=== PATIENT | female | born 1975 | race Caucasian/White ===

== ENCOUNTER 2017-10-31 11:56 | Emergency (ER) | payer SELFPAY ==
[2017-10-31 13:47] LABS: Urine Blood TRACE (NEG); Urine Glucose NEGATIVE (NEG); Urine Protein NEGATIVE (NEG)
[2017-10-31 14:58] LABS: Urine Bacteria LOADED /HPF (<20); Urine Culture Reflex Order REFLEXED; Urine RBC <5 /HPF (NONE SEEN)
--- NOTE | 2017-10-31 15:02 | ER ---
Nurse's Notes [facility] Name: Betsy Vo Age: 42 yrs Sex: Female : 1975 Arrival Date: 10/31/2017 Time: 11:58 Bed 30 Private MD: Diagnosis: Acute upper respiratory infection, unspecified;Urinary tract infection, site not specified Presentation: 10/31 12:08 Presenting complaint: Patient states: Sore throat, painful cough, nonproductive cough, hb and sinus congestion x 4 days. Vomit x 1. Tolerating liquids. Child dx bronchitis last week. Transition of care: patient was not received from another setting of care. Resp Distress? No respiratory distress is noted at this time. Onset of symptoms was October 28, 2017. Initial Sepsis Screen: Does the patient meet any 2 criteria? No. Patient's initial sepsis screen is negative. Does the patient have a suspected source of infection? No. Patient's initial sepsis screen is negative. Care prior to arrival: None. 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 - Social history:: Smoking status: Patient/guardian denies using tobacco. Screenin:00 Abuse screen: Denies threats or abuse. Nutritional screening: No deficits noted. tl3 Tuberculosis screening: No symptoms or risk factors identified. Fall Risk None identified. Assessment: 13:00 General: Appears uncomfortable, obese, well groomed, well developed, well nourished, tl3 Behavior is calm, cooperative, appropriate for age. Pain: Complains of pain in xyphoid area and mid-sternal area. Neuro: Level of Consciousness is awake, alert, obeys commands, Oriented to person, place, time, situation, Appropriate for age. Cardiovascular: Heart tones S1 S2 present Capillary refill < 3 seconds in bilateral fingers Patient's skin is warm and dry. Respiratory: Airway is patent Trachea midline Breath sounds are clear. GI: Reports vomiting, since X1 last night. : No signs and/or symptoms were reported regarding the genitourinary system. EENT: Reports nasal congestion nasal discharge. Derm: No signs and/or symptoms reported regarding the dermatologic system. Musculoskeletal: No signs and/or symptoms reported regarding the musculoskeletal system. 14:00 Reassessment: Patient appears in no apparent distress at this time. No changes from tl3 previously documented assessment. Patient and/or family updated on plan of care and expected duration. Pain level reassessed. Patient is alert, oriented x 3, equal unlabored respirations, skin warm/dry/pink. pt changed into gown for x-ray and blankets offered for comfort and privacy. 15:14 Reassessment: Patient appears in no apparent distress at this time. No changes from hb previously documented assessment. Patient and/or family updated on plan of care and expected duration. Pain level reassessed. Patient is alert, oriented x 3, equal unlabored respirations, skin warm/dry/pink. Vital Signs: 12:11 BP 147 / 103; Pulse 80; Resp 16; Temp 98.2(TE); Pulse Ox 100% on R/A; Weight 136.08 kg; hb Height 5 ft. 7 in. (170.18 cm); Pain 4/10; 15:14 BP 133 / 75; Pulse 79; Resp 18; Pulse Ox 100% ; hb 12:11 Body Mass Index 46.99 (136.08 kg, 170.18 cm) hb ED Course: 11:58 Patient arrived in ED. as 12:10 Triage completed. hb 12:11 Arm band placed on right wrist. hb 12:55 Connie Cruz, RN is Primary Nurse. tl3 13:00 Resting quietly. Awaiting ED provider evaluation. tl3 13:00 Patient has correct armband on for positive identification. Bed in low position. Call tl3 light in reach. Side rails up X 1. 13:00 No provider procedures requiring assistance completed. tl3 13:01 Heber Mendoza PA is PHCP. jr8 13:01 Rashaun Conn MD is Attending Physician. jr8 14:00 Patient did not have IV access during this emergency room visit. tl3 14:30 XRAY Chest Pa And Lat (2 Views) In Process Unspecified. EDMS Administered Medications: No medications were administered Outcome: 15:02 Discharge ordered by . jr8 15:14 Discharged to home ambulatory. hb 15:14 Condition: good 15:14 Discharge instructions given to patient, Instructed on discharge instructions, follow up and referral plans. medication usage, Demonstrated understanding of instructions, follow-up care, medications, Prescriptions given X 3. 15:16 Patient left the ED. hb Addendum: 11/03/2017 14:32 Addendum: Culture Results: Positive urine culture. No further action required. Bacteria i w sensitive to prescribed antibiotic. Signatures: Dispatcher [employer] Heather Deutsch Irene, RN RN Heber Mendoza PA PA jr8 Adri Simeon RN RN Connie Cruz RN RN tl3 Corrections: (The following items were deleted from the chart) 10/31 12:13 12:08 Presenting complaint: Patient states: Painful cough, chest congestion, sinus hb congestion, and SOB x 4 days. Child dx bronchitis last week. hb
--- NOTE | 2017-10-31 15:02 | EDPHYS ---
Physician Documentation [facility] Name: Betsy Vo Age: 42 yrs Sex: Female : 1975 Arrival Date: 10/31/2017 Time: 11:58 Bed 30 Private MD: ED Physician Rashaun Conn HPI: 10/31 15:05 This 42 yrs old Female presents to ER via Ambulatory with complaints of jr8 Congestion, Vomiting, Weakness. 15:05 The patient or guardian reports cough, that is intermittent, described as moderate, jr8 with no sputum. Onset: The symptoms/episode began/occurred gradually, 1 week(s) ago. Severity of symptoms: At their worst the symptoms were mild, in the emergency department the symptoms are unchanged. Modifying factors: The symptoms are alleviated by nothing, the symptoms are aggravated by nothing. Associated signs and symptoms: Pertinent positives: vomiting. The patient has not experienced similar symptoms in the past. The patient has not recently seen a physician. 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 - Social history:: Smoking status: Patient/guardian denies using tobacco. ROS: 15:05 Eyes: Negative for injury, pain, redness, and discharge, ENT: Negative for injury, jr8 pain, and discharge, Neck: Negative for injury, pain, and swelling, Back: Negative for injury and pain, MS/Extremity: Negative for injury and deformity, Skin: Negative for injury, rash, and discoloration, Neuro: Negative for headache, weakness, numbness, tingling, and seizure. 15:05 Cardiovascular: Positive for chest pain, with cough, Negative for edema, orthopnea, palpitations, paroxysmal nocturnal dyspnea. 15:05 Respiratory: Positive for cough, Negative for dyspnea on exertion, shortness of breath, sputum production, wheezing. 15:05 Abdomen/GI: Positive for nausea and vomiting, Negative for abdominal pain, diarrhea, constipation, abdominal cramps, abdominal distension. Exam: 15:05 Eyes: Pupils equal round and reactive to light, extra-ocular motions intact. Lids and jr8 lashes normal. Conjunctiva and sclera are non-icteric and not injected. Cornea within normal limits. Periorbital areas with no swelling, redness, or edema. ENT: Nares patent. No nasal discharge, no septal abnormalities noted. Tympanic membranes are normal and external auditory canals are clear. Oropharynx with no redness, swelling, or masses, exudates, or evidence of obstruction, uvula midline. Mucous membranes moist. Neck: Trachea midline, no thyromegaly or masses palpated, and no cervical lymphadenopathy. Supple, full range of motion without nuchal rigidity, or vertebral point tenderness. No Meningismus. Cardiovascular: Regular rate and rhythm with a normal S1 and S2. No gallops, murmurs, or rubs. Normal PMI, no JVD. No pulse deficits. Respiratory: Lungs have equal breath sounds bilaterally, clear to auscultation and percussion. No rales, rhonchi or wheezes noted. No increased work of breathing, no retractions or nasal flaring. Abdomen/GI: Soft, non-tender, with normal bowel sounds. No distension or tympany. No guarding or rebound. No evidence of tenderness throughout. Back: No spinal tenderness. No costovertebral tenderness. Full range of motion. Skin: Warm, dry with normal turgor. Normal color with no rashes, no lesions, and no evidence of cellulitis. MS/ Extremity: Pulses equal, no cyanosis. Neurovascular intact. Full, normal range of motion. Neuro: Awake and alert, GCS 15, oriented to person, place, time, and situation. Cranial nerves II-XII grossly intact. Motor strength 5/5 in all extremities. Sensory grossly intact. Cerebellar exam normal. Normal gait. Vital Signs: 12:11 BP 147 / 103; Pulse 80; Resp 16; Temp 98.2(TE); Pulse Ox 100% on R/A; Weight 136.08 kg; hb Height 5 ft. 7 in. (170.18 cm); Pain 4/10; 15:14 BP 133 / 75; Pulse 79; Resp 18; Pulse Ox 100% ; hb 12:11 Body Mass Index 46.99 (136.08 kg, 170.18 cm) hb MDM: 13:01 Patient medically screened. jr8 14:58 Data reviewed: vital signs, nurses notes, radiologic studies, plain films, and as a jr8 result, I will discharge patient. Data interpreted: Pulse oximetry: on room air is 100 %. Interpretation: normal. Counseling: I had a detailed discussion with the patient and/or guardian regarding: the historical points, exam findings, and any diagnostic results supporting the discharge/admit diagnosis, radiology results, the need for outpatient follow up, a family practitioner, to return to the emergency department if symptoms worsen or persist or if there are any questions or concerns that arise at home. 10/31 13:38 Order name: Urine Dipstick--Ancillary (enter results); Complete Time: 13:57 bd 10/31 13:38 Order name: Urine --Ancillary (enter results); Complete Time: 13:57 bd 10/31 13:28 Order name: XRAY Chest Pa And Lat (2 Views); Complete Time: 15:05 8 10/31 13:57 Order name: Urine Microscopic Only; Complete Time: 15:03 [facility] 10/31 14:59 Order name: Urine Culture EDMS Administered Medications: No medications were administered Disposition: 10/31/17 15:02 Discharged to Home. Impression: Acute upper respiratory infection, unspecified, Urinary tract infection, site not specified. - Condition is Stable. - Discharge Instructions: Upper Respiratory Infection, Adult, Urinary Tract Infection. - Prescriptions for Augmentin 875- 125 mg Oral Tablet - take 1 tablet by ORAL route every 12 hours for 10 days; 20 tablet. Prednisone 20 mg Oral Tablet - take 1 tablet by ORAL route once daily for 5 days; 5 tablet. Guaifenesin AC 10- 100 mg/5 mL Oral Liquid - take 10 milliliter by ORAL route every 4 hours As needed; 240 milliliter. - Medication Reconciliation Form, Thank You Letter, Antibiotic Education, Prescription Opioid Use form. - Follow up: Private Physician; When: 2 - 3 days; Reason: Recheck today's complaints, Continuance of care, Re-evaluation by your physician. - Problem is new. - Symptoms have improved. Addendum: 11/04/2017 19:09 Co-signature as Attending Physician, Rashaun Conn MD. g s Signatures: Dispatcher [employer] EDMS Heber Mendoza PA PA jr8 Adri Simeon, RN RN Rashaun Swanson MD MD gs Corrections: (The following items were deleted from the chart) 10/31 15:16 15:02 10/31/2017 15:02 Discharged to Home. Impression: Acute upper respiratory hb infection, unspecified; Urinary tract infection, site not specified. Condition is Stable. Forms are Medication Reconciliation Form, Thank You Letter, Antibiotic Education, Prescription Opioid Use. Follow up: Private Physician; When: 2 - 3 days; Reason: Recheck today's complaints, Continuance of care, Re-evaluation by your physician. Problem is new. Symptoms have improved. jr8
--- NOTE | 2017-10-31 15:03 | RAD REPORT ---
EXAM DESCRIPTION: Waqar Michelle (2 Views)10/31/2017 2:31 pm CLINICAL HISTORY: Cough COMPARISON: None FINDINGS: The lungs appear clear of acute infiltrate. The heart is normal size IMPRESSION: No acute abnormalities displayed
[2017-10-31 15:20] VITALS: TEMP 98.2; O2SAT 100
[2017-10-31 15:21] VITALS: BP 133/75
== END 2017-10-31 15:16 | disposition home or self-care (01) ==
LOC: ER 11:56
DX: J06.9 Acute upper respiratory infection, unspecified (principal); N39.0 Urinary tract infection, site not specified; Z88.2 Allergy status to sulfonamides; Z88.8 Allergy status to other drugs, medicaments and biological substances
CPT/HCPCS: 71046; 81003; 81015; 81025; 87077; 87086; 87088; 87186; 99283

== ENCOUNTER 2018-06-01 13:01 | Emergency (ER) | payer SELFPAY ==
[2018-06-01 13:47] LABS: Urine Blood 2+ (NEG); Urine Glucose NEGATIVE (NEG); Urine Protein 2+ (NEG); Urine Specific Gravity 1.025 (1.005-1.030)
[2018-06-01 13:49] LABS: Urine Bacteria >50 /HPF (<20); Urine Culture Reflex Order NOT NEEDED; Urine RBC 20-50 /HPF (NONE SEEN)
[2018-06-01 13:50] LABS: Urine Yeast PRESENT (NONE SEEN)
--- NOTE | 2018-06-01 13:52 | ER ---
Nurse's Notes [facility] Name: Betsy Vo Age: 42 yrs Sex: Female : 1975 Arrival Date: 06/01/2018 Time: 13:06 Bed 24 Private MD: None, None Diagnosis: Cystitis Presentation: 06/01 13:15 Presenting complaint: Patient states: Urinary frequency and burning for 2 days. aj Transition of care: patient was not received from another setting of care. Onset of symptoms was May 30, 2018. Risk Assessment: Do you want to hurt yourself or someone else? Patient reports no desire to harm self or others. Initial Sepsis Screen: Does the patient meet any 2 criteria? No. Patient's initial sepsis screen is negative. Does the patient have a suspected source of infection? No. Patient's initial sepsis screen is negative. Care prior to arrival: None. 13:15 Method Of Arrival: Ambulatory aj 13:15 Acuity: BLAIRE 4 aj Triage Assessment: 13:17 General: Appears in no apparent distress. comfortable, Behavior is calm, cooperative, aj appropriate for age. Pain: Denies pain. Neuro: Level of Consciousness is awake, alert, obeys commands, Oriented to person, place, time, situation, Appropriate for age. Respiratory: Airway is patent Respiratory effort is even, unlabored, Respiratory pattern is regular, symmetrical. : Reports burning with urination. Derm: Skin is intact, is healthy with good turgor, Skin is pink, warm \T\ dry. normal. 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 - Social history:: Smoking status: Patient/guardian denies using tobacco. - Ebola Screening: : Patient negative for fever greater than or equal to 101.5 degrees Fahrenheit, and additional compatible Ebola Virus Disease symptoms Patient denies exposure to infectious person Patient denies travel to an Ebola-affected area in the 21 days before illness onset No symptoms or risks identified at this time. Screenin:26 Abuse screen: Denies threats or abuse. Denies injuries from another. Nutritional ed1 screening: No deficits noted. Tuberculosis screening: No symptoms or risk factors identified. Fall Risk None identified. Assessment: 13:26 Reassessment: Patient appears in no apparent distress at this time. No changes from ed1 previously documented assessment. Patient and/or family updated on plan of care and expected duration. Pain level reassessed. Patient is alert, oriented x 3, equal unlabored respirations, skin warm/dry/pink. Patient states symptoms have not improved. 13:50 Reassessment: Patient appears in no apparent distress at this time. I agree with above iw assessment by ROBERT Melendez. 14:09 Reassessment: Patient appears in no apparent distress at this time. No changes from ed1 previously documented assessment. Patient and/or family updated on plan of care and expected duration. Pain level reassessed. Patient is alert, oriented x 3, equal unlabored respirations, skin warm/dry/pink. Vital Signs: 13:17 BP 134 / 84; Pulse 89; Resp 19; Temp 98.4; Pulse Ox 100% on R/A; Weight 131.54 kg; aj Height 5 ft. 7 in. (170.18 cm); 14:09 BP 132 / 76; Pulse 83; Resp 17; Pulse Ox 100% on R/A; Pain 0/10; ed1 13:17 Body Mass Index 45.42 (131.54 kg, 170.18 cm) ED Course: 13:06 Patient arrived in ED. mr 13:07 None, None is Private Physician. mr 13:16 Triage completed. aj 13:17 Arm band placed on right wrist. Patient placed in an exam room. aj 13:21 Heber Mendoza PA is PHCP. jr8 13:21 Vignesh Camacho MD is Attending Physician. jr8 13:26 Nora Olivera LVN is Primary Nurse. ed1 13:26 Patient has correct armband on for positive identification. Bed in low position. Call ed1 light in reach. 14:09 No provider procedures requiring assistance completed. Patient did not have IV access ed1 during this emergency room visit. Administered Medications: No medications were administered Outcome: 13:52 Discharge ordered by . jr8 14:09 Discharged to home ambulatory. ed1 14:09 Condition: good 14:09 Discharge instructions given to patient, Instructed on discharge instructions, follow up and referral plans. medication usage, Demonstrated understanding of instructions, follow-up care, medications, Prescriptions given X 2. 14:10 Patient left the ED. ed1 15:22 Discharge instructions given to prescription changed to Leavquin 500 mg PO daily for 5 iw days, per Heber MUNOZ, pharmacy states they cannot get Macrobid Signatures: Mela Carolina RN RN aj Rivera, Mary mr Williams, Irene, RN RN iw Riggs, Erika, CASH VAN SALESPERSON CASH VAN SALESPERSON ed1 Heber Mendoza PA PA jr8
--- NOTE | 2018-06-01 13:52 | EDPHYS ---
Physician Documentation [facility] Name: Betsy Vo Age: 42 yrs Sex: Female : 1975 Arrival Date: 06/01/2018 Time: 13:06 Bed 24 Private MD: None, None ED Physician Vignesh Camacho HPI: 06/01 13:50 This 42 yrs old Female presents to ER via Ambulatory with complaints of jr8 Urinary Problem. 13:50 The patient presents with urinary symptoms, dysuria, frequency, urgency. Onset: The jr8 symptoms/episode began/occurred acutely, yesterday. Modifying factors: The symptoms are alleviated by nothing, the symptoms are aggravated by urinating. Associated signs and symptoms: The patient has no apparent associated signs or symptoms. Severity of symptoms: At their worst the symptoms were mild, in the emergency department the symptoms are unchanged. The patient has experienced similar episodes in the past, a few times. The patient has not recently seen a physician. 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 - Social history:: Smoking status: Patient/guardian denies using tobacco. - Ebola Screening: : Patient negative for fever greater than or equal to 101.5 degrees Fahrenheit, and additional compatible Ebola Virus Disease symptoms Patient denies exposure to infectious person Patient denies travel to an Ebola-affected area in the 21 days before illness onset No symptoms or risks identified at this time. ROS: 13:50 Eyes: Negative for injury, pain, redness, and discharge, ENT: Negative for injury, jr8 pain, and discharge, Neck: Negative for injury, pain, and swelling, Cardiovascular: Negative for chest pain, palpitations, and edema, Respiratory: Negative for shortness of breath, cough, wheezing, and pleuritic chest pain, Abdomen/GI: Negative for abdominal pain, nausea, vomiting, diarrhea, and constipation, Back: Negative for injury and pain, MS/Extremity: Negative for injury and deformity, Skin: Negative for injury, rash, and discoloration, Neuro: Negative for headache, weakness, numbness, tingling, and seizure. 13:50 : Positive for urinary symptoms, burning with urination. Exam: 13:50 Cardiovascular: Regular rate and rhythm with a normal S1 and S2. No gallops, murmurs, jr8 or rubs. Normal PMI, no JVD. No pulse deficits. Respiratory: Lungs have equal breath sounds bilaterally, clear to auscultation and percussion. No rales, rhonchi or wheezes noted. No increased work of breathing, no retractions or nasal flaring. Abdomen/GI: Soft, non-tender, with normal bowel sounds. No distension or tympany. No guarding or rebound. No evidence of tenderness throughout. Back: No spinal tenderness. No costovertebral tenderness. Full range of motion. Skin: Warm, dry with normal turgor. Normal color with no rashes, no lesions, and no evidence of cellulitis. MS/ Extremity: Pulses equal, no cyanosis. Neurovascular intact. Full, normal range of motion. Neuro: Awake and alert, GCS 15, oriented to person, place, time, and situation. Cranial nerves II-XII grossly intact. Motor strength 5/5 in all extremities. Sensory grossly intact. Cerebellar exam normal. Normal gait. Vital Signs: 13:17 BP 134 / 84; Pulse 89; Resp 19; Temp 98.4; Pulse Ox 100% on R/A; Weight 131.54 kg; aj Height 5 ft. 7 in. (170.18 cm); 14:09 BP 132 / 76; Pulse 83; Resp 17; Pulse Ox 100% on R/A; Pain 0/10; ed1 13:17 Body Mass Index 45.42 (131.54 kg, 170.18 cm) aj MDM: 13:21 Patient medically screened. [facility] 13:50 Data reviewed: vital signs, nurses notes, lab test result(s), and as a result, I will [facility] discharge patient. Data interpreted: Pulse oximetry: on room air is 100 %. Interpretation: normal. Counseling: I had a detailed discussion with the patient and/or guardian regarding: the historical points, exam findings, and any diagnostic results supporting the discharge/admit diagnosis, lab results, the need for outpatient follow up, a family practitioner, to return to the emergency department if symptoms worsen or persist or if there are any questions or concerns that arise at home. 06/01 13:30 Order name: Urine Microscopic Only [facility] 06/01 13:43 Order name: Urine Dipstick--Ancillary (enter results); Complete Time: 13:50 eb 06/01 13:30 Order name: Urine Test (obtain specimen); Complete Time: 13:41 8 06/01 13:30 Order name: Urine Dipstick-Ancillary (obtain specimen); Complete Time: 13:41 [facility] 06/01 13:43 Order name: Urine --Ancillary (enter results); Complete Time: 13:50 eb Administered Medications: No medications were administered Disposition: 18:52 Co-signature as Attending Physician, Vignesh Camacho MD I agree with the assessment and kdr plan of care. Disposition: 06/01/18 13:52 Discharged to Home. Impression: Cystitis. - Condition is Stable. - Discharge Instructions: Dysuria. - Prescriptions for Pyridium 200 mg Oral Tablet - take 1 tablet by ORAL route every 8 hours for 3 days; 9 tablet. Macrobid 100 mg Oral Capsule - take 1 capsule by ORAL route every 12 hours for 7 days; 14 capsule. - Medication Reconciliation Form, Thank You Letter, Antibiotic Education, Prescription Opioid Use form. - Follow up: Private Physician; When: 1 week; Reason: Recheck today's complaints, Continuance of care, Re-evaluation by your physician. - Problem is new. - Symptoms have improved. Signatures: Dispatcher [employer] EDMS Mela Carolina RN RN aj Rittger, Kevin, MD MD [facility] Nora Olivera, BOILING OFF WINDER BOILING OFF WINDER ed1 Heber Mendoza PA PA jr8 Corrections: (The following items were deleted from the chart) 14:10 13:52 06/01/2018 13:52 Discharged to Home. Impression: Cystitis. Condition is Stable. ed1 Forms are Medication Reconciliation Form, Thank You Letter, Antibiotic Education, Prescription Opioid Use. Follow up: Private Physician; When: 1 week; Reason: Recheck today's complaints, Continuance of care, Re-evaluation by your physician. Problem is new. Symptoms have improved. jr8
[2018-06-01 14:27] VITALS: TEMP 98.4; O2SAT 100
[2018-06-01 14:28] VITALS: BP 132/76
== END 2018-06-01 14:10 | disposition home or self-care (01) ==
LOC: ER 13:01
DX: N30.90 Cystitis, unspecified without hematuria (principal); I10 Essential (primary) hypertension; Z88.2 Allergy status to sulfonamides; Z88.8 Allergy status to other drugs, medicaments and biological substances
CPT/HCPCS: 81003; 81015; 81025; 99282

== ENCOUNTER 2018-12-02 11:06 | Emergency (ER) | payer OTHER, SELFPAY ==
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
[2018-12-02 12:43] VITALS: BP 141/96; TEMP 98; O2SAT 100
== END 2018-12-02 12:28 | disposition home or self-care (01) ==
LOC: ER 11:06
DX: S87.82XA Crushing injury of left lower leg, initial encounter (principal); W20.8XXA Other cause of strike by thrown, projected or falling object, initial encounter; E78.5 Hyperlipidemia, unspecified; I10 Essential (primary) hypertension
CPT/HCPCS: 99283

== ENCOUNTER 2019-03-03 06:45 | Emergency (ER) | payer SELFPAY ==
[2019-03-03 07:51] LABS: Urine Bacteria LOADED /HPF (<20); Urine RBC NONE SEEN /HPF (NONE SEEN)
[2019-03-03 07:52] LABS: Urine Culture Reflex Order NOT NEEDED
[2019-03-03 07:53] LABS: Urine Blood TRACE (NEG); Urine Glucose NEGATIVE (NEG); Urine Protein NEGATIVE (NEG)
[2019-03-03] MEDS ORDERED: CEFTRIAXONE 1000 MG/VIAL ONE (08:06)
[2019-03-03] MEDS ORDERED: LIDOCAINE 1% MPF 2 ML AMPULE ONE (08:06)
--- NOTE | 2019-03-03 08:07 | ER ---
Nurse's Notes [facility] Name: Betsy Vo Age: 43 yrs Sex: Female : 1975 Arrival Date: 03/03/2019 Time: 06:46 Bed 2 Private MD: Diagnosis: Bronchitis, not specified as acute or chronic;Urinary tract infection, site not specified;Essential (primary) hypertension Presentation: 03/03 06:58 Presenting complaint: Patient states: "I started on Tuesday with a sore throat but then aa5 it got better so I didn't think anything of it and now I am sneezing and coughing up yellow stuff at times". Pt also reports urinary frequency and reports she's been out of her hypertension medication for 2 weeks. 06:58 Transition of care: patient was not received from another setting of care. aa5 06:58 Method Of Arrival: Ambulatory aa5 06:58 Acuity: BLAIRE 3 aa5 06:58 Onset of symptoms was February 2019. aa5 06:58 Risk Assessment: Do you want to hurt yourself or someone else? Patient reports no aa5 desire to harm self or others. Initial Sepsis Screen: Does the patient meet any 2 criteria? No. Patient's initial sepsis screen is negative. Does the patient have a suspected source of infection? No. Patient's initial sepsis screen is negative. Care prior to arrival: None. 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 - Social history:: Smoking status: Patient/guardian denies using tobacco. - Ebola Screening: : No symptoms or risks identified at this time. Screenin:15 Abuse screen: Denies threats or abuse. Denies injuries from another. Nutritional hb screening: No deficits noted. Tuberculosis screening: No symptoms or risk factors identified. Fall Risk None identified. Assessment: 07:15 General: Appears in no apparent distress. Behavior is calm, cooperative. Pain: Denies hb pain. Neuro: Level of Consciousness is awake, alert, obeys commands, Oriented to person, place, time, situation. Cardiovascular: Heart tones S1 S2 present Capillary refill < 3 seconds Patient's skin is warm and dry. Respiratory: Reports cough that is Airway is patent Respiratory effort is even, unlabored, Respiratory pattern is regular, symmetrical, Breath sounds are clear bilaterally. GI: No signs and/or symptoms were reported involving the gastrointestinal system. : Reports burning with urination. EENT: No signs and/or symptoms were reported regarding the EENT system. Derm: Skin is intact, is healthy with good turgor, Skin is pink, warm \\T\\ dry. Musculoskeletal: No signs and/or symptoms reported regarding the musculoskeletal system. Vital Signs: 07:00 BP 149 / 85; Pulse 77; Resp 18 S; Temp 97.8(O); Pulse Ox 100% on R/A; Weight 129.27 kg aa5 (R); Height 5 ft. 7 in. (170.18 cm) (R); Pain 0/10; 07:00 Body Mass Index 44.64 (129.27 kg, 170.18 cm) aa5 ED Course: 06:46 Patient arrived in ED. ag3 06:46 Berna Oswald FNP-C is [facility]. snw 06:46 Carlos Curtis MD is Attending Physician. snw 06:58 Arm band placed on Patient placed in an exam room, on a stretcher. aa5 07:09 Triage completed. aa5 07:15 Patient has correct armband on for positive identification. Placed in gown. Bed in low hb position. Call light in reach. Side rails up X 1. 07:36 Adri Simeon, ANNA is Primary Nurse. hb Administered Medications: 08:10 Drug: Rocephin (cefTRIAXone) 1 grams Route: IM; Site: left deltoid; hb Outcome: 08:03 Discharge ordered by . snw 08:35 Patient left the ED. hb Addendum: 03/06/2019 10:00 Addendum: Culture Results: Positive urine culture. No further action required. Bacteria s s sensitive to prescribed antibiotic. Signatures: Darek, Berna, REAL ESTATE JOB TITLES-C REAL ESTATE JOB TITLES-Csnw Jaky Fuller, RN RN aa5 Haydee Ta RN RN ss Adri Simeon, RN RN Libby Ramachandran3
--- NOTE | 2019-03-03 08:08 | EDPHYS ---
Physician Documentation [facility] Name: Betsy Vo Age: 43 yrs Sex: Female : 1975 Arrival Date: 03/03/2019 Time: 06:46 Bed 2 Private MD: ED Physician Carlos Curtis HPI: 03/03 08:10 This 43 yrs old Female presents to ER via Ambulatory with complaints of snw Sneezing, Cough, Urinary Frequency. 08:10 Pt with sore throat two days ago, resolved and then started with increased congestion, snw cough, malaise, urinary symptoms. Onset: The symptoms/episode began/occurred gradually, 4 day(s) ago, and became persistent. Severity of symptoms: At their worst the symptoms were mild moderate in the emergency department the symptoms are unchanged. It is unknown whether or not the patient has had similar symptoms in the past. It is unknown whether or not the patient has recently seen a physician. 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 - Social history:: Smoking status: Patient/guardian denies using tobacco. - Ebola Screening: : No symptoms or risks identified at this time. ROS: 08:10 Constitutional: Negative for fever, chills, and weight loss, Eyes: Negative for injury, snw pain, redness, and discharge, ENT: Negative for injury, pain, and discharge, Neck: Negative for injury, pain, and swelling, Cardiovascular: Negative for chest pain, palpitations, and edema. 08:10 Abdomen/GI: Negative for abdominal pain, nausea, vomiting, diarrhea, and constipation, Back: Negative for injury and pain, MS/Extremity: Negative for injury and deformity, Skin: Negative for injury, rash, and discoloration, Neuro: Negative for headache, weakness, numbness, tingling, and seizure. 08:10 Respiratory: Positive for cough, shortness of breath. 08:10 : Positive for urinary symptoms. Exam: 08:07 Constitutional: This is a well developed, well nourished patient who is awake, alert, snw and in no acute distress. Head/Face: Normocephalic, atraumatic. Eyes: Pupils equal round and reactive to light, extra-ocular motions intact. Lids and lashes normal. Conjunctiva and sclera are non-icteric and not injected. Cornea within normal limits. Periorbital areas with no swelling, redness, or edema. Neck: Trachea midline, no thyromegaly or masses palpated, and no cervical lymphadenopathy. Supple, full range of motion without nuchal rigidity, or vertebral point tenderness. No Meningismus. Chest/axilla: Normal chest wall appearance and motion. Nontender with no deformity. No lesions are appreciated. Cardiovascular: Regular rate and rhythm with a normal S1 and S2. No gallops, murmurs, or rubs. Normal PMI, no JVD. No pulse deficits. Abdomen/GI: Soft, non-tender, with normal bowel sounds. No distension or tympany. No guarding or rebound. No evidence of tenderness throughout. Back: No spinal tenderness. No costovertebral tenderness. Full range of motion. Skin: Warm, dry with normal turgor. Normal color with no rashes, no lesions, and no evidence of cellulitis. MS/ Extremity: Pulses equal, no cyanosis. Neurovascular intact. Full, normal range of motion. Neuro: Awake and alert, GCS 15, oriented to person, place, time, and situation. Cranial nerves II-XII grossly intact. Motor strength 5/5 in all extremities. Sensory grossly intact. Cerebellar exam normal. Normal gait. Psych: Awake, alert, with orientation to person, place and time. Behavior, mood, and affect are within normal limits. 08:07 ENT: External ear(s): are unremarkable, Ear canal(s): are normal, Nose: is normal, Mouth: is normal, Voice: is hoarse. 08:07 Respiratory: the patient does not display signs of respiratory distress, Respirations: normal, Breath sounds: are clear throughout, bronchitic cough. Vital Signs: 07:00 BP 149 / 85; Pulse 77; Resp 18 S; Temp 97.8(O); Pulse Ox 100% on R/A; Weight 129.27 kg aa5 (R); Height 5 ft. 7 in. (170.18 cm) (R); Pain 0/10; 07:00 Body Mass Index 44.64 (129.27 kg, 170.18 cm) aa5 MDM: 07:21 Patient medically screened. snw 08:05 Data reviewed: vital signs, nurses notes. Data interpreted: Pulse oximetry: on room air snw is 100 %. Interpretation: normal. Counseling: I had a detailed discussion with the patient and/or guardian regarding: the historical points, exam findings, and any diagnostic results supporting the discharge/admit diagnosis, the presence of at least one elevated blood pressure reading (>120/80) during this emergency department visit, lab results, the need for outpatient follow up, to return to the emergency department if symptoms worsen or persist or if there are any questions or concerns that arise at home. Special discussion: I have referred the patient to see his PCP for further evaluation of high blood pressure. Based on the history and exam findings, there is no indication for further emergent testing or inpatient evaluation. I discussed with the patient/guardian the need to see the primary care provider for further evaluation of the symptoms. 03/03 07:20 Order name: Strep; Complete Time: 07:54 snw 03/03 07:20 Order name: Urine Culture snw 03/03 07:20 Order name: Urine Microscopic Only; Complete Time: 07:54 snw 03/03 07:46 Order name: Urine Dipstick--Ancillary (enter results) eb 03/03 07:54 Order name: Throat Culture EDVA 03/03 07:20 Order name: Urine Test (obtain specimen); Complete Time: 07:36 snw 03/03 07:20 Order name: Urine Dipstick-Ancillary (obtain specimen); Complete Time: 07:36 snw Administered Medications: 08:10 Drug: Rocephin (cefTRIAXone) 1 grams Route: IM; Site: left deltoid; hb Disposition: 20:35 Co-signature as Attending Physician, Carlos Curtis MD. rn Disposition: 03/03/19 08:03 Discharged to Home. Impression: Bronchitis, not specified as acute or chronic, Urinary tract infection, site not specified, Essential (primary) hypertension. - Condition is Stable. - Discharge Instructions: Acute Bronchitis, Adult, Hypertension, Urinary Tract Infection, Adult, Rehydration, Adult. - Prescriptions for Augmentin 875- 125 mg Oral Tablet - take 1 tablet by ORAL route every 12 hours for 10 days; 20 tablet. Pepcid 20 mg Oral Tablet - take 1 tablet by ORAL route once daily; 20 tablet. metoprolol succinate 25 mg Oral tablet extended release 24 hr - take 1 tablet by ORAL route once daily; 30 tablet. - Work release form, Medication Reconciliation Form, Thank You Letter, Antibiotic Education, Prescription Opioid Use form. - Follow up: Emergency Department; When: As needed; Reason: Worsening of condition. Follow up: Private Physician; When: 2 - 3 days; Reason: Recheck today's complaints, Continuance of care, Re-evaluation by your physician. Signatures: Dispatcher [employer] EDMS Berna Oswald, FABRIC MACHINE OPERATOR-C FABRIC MACHINE OPERATOR-Csnw Carlos Curtis MD MD rn Calderon, Audri, RN RN aa5 Adri Simeon RN RN hb Corrections: (The following items were deleted from the chart) 08:30 08:03 03/03/2019 08:03 Discharged to Home. Impression: Bronchitis, not specified as snw acute or chronic; Urinary tract infection, site not specified. Condition is Stable. Forms are Medication Reconciliation Form, Thank You Letter, Antibiotic Education, Prescription Opioid Use. Follow up: Emergency Department; When: As needed; Reason: Worsening of condition. Follow up: Private Physician; When: 2 - 3 days; Reason: Recheck today's complaints, Continuance of care, Re-evaluation by your physician. snw 08:35 08:30 03/03/2019 08:03 Discharged to Home. Impression: Bronchitis, not specified as hb acute or chronic; Urinary tract infection, site not specified; Essential (primary) hypertension. Condition is Stable. Discharge Instructions: Acute Bronchitis, Adult, Hypertension, Urinary Tract Infection, Adult, Rehydration, Adult. Prescriptions for Augmentin 875-125 mg Oral Tablet - take 1 tablet by ORAL route every 12 hours for 10 days; 20 tablet, Pepcid 20 mg Oral Tablet - take 1 tablet by ORAL route once daily; 20 tablet. and Forms are Medication Reconciliation Form, Thank You Letter, Antibiotic Education, Prescription Opioid Use, Work release form. Follow up: Emergency Department; When: As needed; Reason: Worsening of condition. Follow up: Private Physician; When: 2 - 3 days; Reason: Recheck today's complaints, Continuance of care, Re-evaluation by your physician. snw
[2019-03-03 08:46] VITALS: BP 149/85; TEMP 97.8; O2SAT 100
== END 2019-03-03 08:35 | disposition home or self-care (01) ==
LOC: ER 06:45
DX: J40 Bronchitis, not specified as acute or chronic (principal); N39.0 Urinary tract infection, site not specified; I10 Essential (primary) hypertension; Z91.040 Latex allergy status; Z88.2 Allergy status to sulfonamides
CPT/HCPCS: 81003; 81015; 87070; 87077; 87081; 87086; 87088; 87186; 96372; 99282; J2001

== ENCOUNTER 2019-05-17 23:38 | Emergency (ER) | payer SELFPAY ==
[2019-05-18] MEDS ORDERED: KETOROLAC 30 MG/ML INJ ONE (00:16)
[2019-05-18] MEDS ORDERED: HYDROCODONE/APAP 10/325 TAB ONE (00:16)
--- NOTE | 2019-05-18 01:10 | EDPHYS ---
Physician Documentation [facility] Name: Betsy Vo Age: 43 yrs Sex: Female : 1975 Arrival Date: 05/17/2019 Time: 23:39 Bed 13 Private MD: ED Physician Rickie Arreola HPI: 05/18 00:15 This 43 yrs old Female presents to ER via Wheelchair with complaints of Fall kevin Injury, Knee Injury. 00:15 Details of fall: The patient fell from an upright position, while walking. Onset: The kevin symptoms/episode began/occurred yesterday. Associated injuries: The patient sustained left knee, decreased range of motion, painful injury. Severity of symptoms: At their worst the symptoms were mild, in the emergency department the symptoms are unchanged. The patient has not experienced similar symptoms in the past. 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 - Social history:: Smoking status: Patient/guardian denies using tobacco. - Ebola Screening: : No symptoms or risks identified at this time. - Family history:: not pertinent. ROS: 05/18 00:15 Constitutional: Negative for fever, chills, and weight loss, Eyes: Negative for injury, kevin pain, redness, and discharge, ENT: Negative for injury, pain, and discharge, Neck: Negative for injury, pain, and swelling, Cardiovascular: Negative for chest pain, palpitations, and edema, Respiratory: Negative for shortness of breath, cough, wheezing, and pleuritic chest pain, Abdomen/GI: Negative for abdominal pain, nausea, vomiting, diarrhea, and constipation, Back: Negative for injury and pain, : Negative for injury, bleeding, discharge, and swelling, Skin: Negative for injury, rash, and discoloration, Neuro: Negative for headache, weakness, numbness, tingling, and seizure, Psych: Negative for depression, anxiety, suicide ideation, homicidal ideation, and hallucinations, Allergy/Immunology: Negative for hives, rash, and allergies, Endocrine: Negative for neck swelling, polydipsia, polyuria, polyphagia, and marked weight changes, Hematologic/Lymphatic: Negative for swollen nodes, abnormal bleeding, and unusual bruising. MS/extremity: Positive for decreased range of motion, pain, tenderness, of the left knee. Exam: 00:15 Constitutional: This is a well developed, well nourished patient who is awake, alert, kevin and in no acute distress. Head/Face: Normocephalic, atraumatic. Eyes: Pupils equal round and reactive to light, extra-ocular motions intact. Lids and lashes normal. Conjunctiva and sclera are non-icteric and not injected. Cornea within normal limits. Periorbital areas with no swelling, redness, or edema. ENT: Nares patent. No nasal discharge, no septal abnormalities noted. Tympanic membranes are normal and external auditory canals are clear. Oropharynx with no redness, swelling, or masses, exudates, or evidence of obstruction, uvula midline. Mucous membranes moist. Neck: Trachea midline, no thyromegaly or masses palpated, and no cervical lymphadenopathy. Supple, full range of motion without nuchal rigidity, or vertebral point tenderness. No Meningismus. Chest/axilla: Normal chest wall appearance and motion. Nontender with no deformity. No lesions are appreciated. Cardiovascular: Regular rate and rhythm with a normal S1 and S2. No gallops, murmurs, or rubs. Normal PMI, no JVD. No pulse deficits. Respiratory: Lungs have equal breath sounds bilaterally, clear to auscultation and percussion. No rales, rhonchi or wheezes noted. No increased work of breathing, no retractions or nasal flaring. Abdomen/GI: Soft, non-tender, with normal bowel sounds. No distension or tympany. No guarding or rebound. No evidence of tenderness throughout. Back: No spinal tenderness. No costovertebral tenderness. Full range of motion. Skin: Warm, dry with normal turgor. Normal color with no rashes, no lesions, and no evidence of cellulitis. Neuro: Awake and alert, GCS 15, oriented to person, place, time, and situation. Cranial nerves II-XII grossly intact. Motor strength 5/5 in all extremities. Sensory grossly intact. Cerebellar exam normal. Normal gait. Psych: Awake, alert, with orientation to person, place and time. Behavior, mood, and affect are within normal limits. 00:15 Musculoskeletal/extremity: Extremities: grossly normal except: noted in the left knee: decreased ROM, pain. Vital Signs: 05/17 23:50 BP 148 / 98; Pulse 89; Resp 16; Temp 98.2; Pulse Ox 100% on R/A; Weight 124.74 kg (R); ak1 Height 5 ft. 7 in. (170.18 cm) (R); Pain 03/13; 05/18 00:24 BP 130 / 78; Pulse 84; Resp 16 S; Pulse Ox 99% on R/A; jd3 05/17 23:50 Body Mass Index 43.07 (124.74 kg, 170.18 cm) ak1 MDM: 05/17 23:43 Patient medically screened. [facility] 05/18 00:15 Data reviewed: vital signs, nurses notes, radiologic studies, plain films. [facility] 05/18 00:13 Order name: Knee Left 3 View XRAY [facility] 05/18 00:13 Order name: Knee Immobilizer; Complete Time: 01:22 [facility] 05/18 00:13 Order name: Crutches; Complete Time: 01:22 [facility] 05/18 00:13 Order name: Ice pack; Complete Time: 00:14 [facility] Administered Medications: 00:23 Drug: TORadol 60 mg Route: IM; Site: right vastus lateralis; jd3 01:22 Follow up: Response: No adverse reaction [facility] 00:23 Drug: Shobonier 10 mg-325 mg 1 tabs Route: PO; jd3 01:22 Follow up: Response: No adverse reaction; RASS: Alert and Calm (0) jd3 Disposition: 05/18/19 01:09 Discharged to Home. Impression: Fall down embankment (hill), Pain in left knee, Unspecified internal derangement of left knee. - Condition is Stable. - Discharge Instructions: Joint Pain, How to Use a Knee Brace, Musculoskeletal Pain, Knee Pain, Knee Pain, [id number], Joint Pain, [id number]-[id number]. - Prescriptions for Ibuprofen 600 mg Oral Tablet - take 1 tablet by ORAL route every 6 hours As needed take with food; 20 tablet. Tylenol- Codeine #3 300-30 mg Oral Tablet - take 2 tablet by ORAL route every 6 hours As needed; 30 tablet. - Medication Reconciliation Form, Thank You Letter, Antibiotic Education, Prescription Opioid Use, Work release form form. - Follow up: Private Physician; When: 2 - 3 days; Reason: Recheck today's complaints, Continuance of care, Re-evaluation by your physician. Follow up: Philip Craft; When: 2 - 3 days; Reason: Recheck today's complaints, Re-evaluation by your physician. - Problem is new. - Symptoms have improved. Signatures: Dispatcher [employer] EDRickie Romero MD MD cha Krenek, Amber RN RN ak1 Isaac Bolanos RN RN jd3 Corrections: (The following items were deleted from the chart) 01:31 01:09 05/18/2019 01:09 Discharged to Home. Impression: Fall down embankment (hill); jd3 Pain in left knee; Unspecified internal derangement of left knee. Condition is Stable. Discharge Instructions: Joint Pain, How to Use a Knee Brace, Musculoskeletal Pain, Knee Pain, Knee Pain, [id number], Joint Pain, Hhfs-yd-Ceqi. Prescriptions for Ibuprofen 600 mg Oral Tablet - take 1 tablet by ORAL route every 6 hours As needed take with food; 20 tablet, Tylenol-Codeine #3 300-30 mg Oral Tablet - take 2 tablet by ORAL route every 6 hours As needed; 30 tablet. and Forms are Medication Reconciliation Form, Thank You Letter, Antibiotic Education, Prescription Opioid Use. Follow up: Private Physician; When: 2 - 3 days; Reason: Recheck today's complaints, Continuance of care, Re-evaluation by your physician. Follow up: Philip Craft; When: 2 - 3 days; Reason: Recheck today's complaints, Re-evaluation by your physician. Problem is new. Symptoms have improved. kevin
--- NOTE | 2019-05-18 01:10 | ER ---
Nurse's Notes [facility] Name: Betsy Vo Age: 43 yrs Sex: Female : 1975 Arrival Date: 05/17/2019 Time: 23:39 Bed 13 Private MD: Diagnosis: Fall down embankment (hill);Pain in left knee;Unspecified internal derangement of left knee Presentation: 05/17 23:48 Presenting complaint: Patient states: left knee pain s/p trip and fall at 1530. pt ak1 stated she was walking down a ramp and fell landing on her left knee. Transition of care: patient was not received from another setting of care. Onset of symptoms was May 17, 2019. Risk Assessment: Do you want to hurt yourself or someone else? Patient reports no desire to harm self or others. Initial Sepsis Screen: Does the patient meet any 2 criteria? No. Patient's initial sepsis screen is negative. Does the patient have a suspected source of infection? No. Patient's initial sepsis screen is negative. Note pt mother is waiting in the lobby. Care prior to arrival: None. 23:48 Method Of Arrival: Wheelchair ak1 23:48 Acuity: BLAIRE 4 ak1 Triage Assessment: 23:50 General: Appears uncomfortable, Behavior is cooperative. 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 - Social history:: Smoking status: Patient/guardian denies using tobacco. - Ebola Screening: : No symptoms or risks identified at this time. - Family history:: not pertinent. Screenin:53 Abuse screen: Denies threats or abuse. Nutritional screening: No deficits noted. jd3 Tuberculosis screening: No symptoms or risk factors identified. Fall Risk Ambulatory Aid- None/Bed Rest/Nurse Assist (0 pts). Gait- Normal/Bed Rest/Wheelchair (0 pts) Mental Status- Oriented to own ability (0 pts). Total Ryan Fall Scale indicates No Risk (0-24 pts). Assessment: 23:52 General: Appears in no apparent distress. uncomfortable, Behavior is calm, cooperative, jd3 appropriate for age. Pain: Complains of pain in left knee Quality of pain is described as aching, sharp, tender. Neuro: Level of Consciousness is awake, alert, obeys commands, Oriented to person, place, time, situation. Cardiovascular: Capillary refill < 3 seconds Patient's skin is warm and dry. Respiratory: Airway is patent Respiratory effort is even, unlabored, Respiratory pattern is regular, symmetrical, Denies cough, shortness of breath. GI: No signs and/or symptoms were reported involving the gastrointestinal system. : No signs and/or symptoms were reported regarding the genitourinary system. EENT: No signs and/or symptoms were reported regarding the EENT system. Derm: Skin is intact, Skin is dry, Skin is normal, Skin temperature is warm. Musculoskeletal: Circulation, motion, and sensation intact. Range of motion: intact in all extremities. 05/18 00:24 Reassessment: Patient appears in no apparent distress at this time. No changes from jd3 previously documented assessment. Patient and/or family updated on plan of care and expected duration. Pain level reassessed. Patient is alert, oriented x 3, equal unlabored respirations, skin warm/dry/pink. 01:31 Reassessment: Patient appears in no apparent distress at this time. Patient and/or jd3 family updated on plan of care and expected duration. Pain level reassessed. Patient is alert, oriented x 3, equal unlabored respirations, skin warm/dry/pink. Patient states feeling better. Vital Signs: 05/17 23:50 BP 148 / 98; Pulse 89; Resp 16; Temp 98.2; Pulse Ox 100% on R/A; Weight 124.74 kg (R); ak1 Height 5 ft. 7 in. (170.18 cm) (R); Pain 03/13; 05/18 00:24 BP 130 / 78; Pulse 84; Resp 16 S; Pulse Ox 99% on R/A; jd3 05/17 23:50 Body Mass Index 43.07 (124.74 kg, 170.18 cm) ak1 ED Course: 05/17 23:39 Patient arrived in ED. cf2 23:43 Rickie Arreola MD is Attending Physician. kevin 23:49 Triage completed. ak1 23:50 Arm band placed on Patient placed in an exam room, on a stretcher, Patient notified of ak1 wait time. 23:54 Patient has correct armband on for positive identification. Bed in low position. Call jd3 light in reach. Side rails up X 1. Adult w/ patient. 05/18 00:14 Isaac Bolanos, RN is Primary Nurse. jd3 01:08 Philip Craft MD is Referral Physician. kevin 01:31 No provider procedures requiring assistance completed. Patient did not have IV access jd3 during this emergency room visit. 03:35 Knee Left 3 View XRAY In Process Unspecified. EDMS Administered Medications: 00:23 Drug: TORadol 60 mg Route: IM; Site: right vastus lateralis; jd3 01:22 Follow up: Response: No adverse reaction jd3 00:23 Drug: [place] 10 mg-325 mg 1 tabs Route: PO; jd3 01:22 Follow up: Response: No adverse reaction; RASS: Alert and Calm (0) jd3 Outcome: 01:09 Discharge ordered by . kevin 01:31 Discharged to home via wheelchair, with family. jd3 01:31 Condition: stable 01:31 Discharge instructions given to patient, Instructed on discharge instructions, follow up and referral plans. medication usage, Demonstrated understanding of instructions, follow-up care, medications, Prescriptions given X 2. 01:31 Patient left the ED. jd3 Signatures: Dispatcher [employer] EDMS Rickie Arreola MD MD cha Krenek, Amber, RN RN ak1 Isaac Bolanos, ANNA RN jElinor Richter cf2
[2019-05-18 01:35] VITALS: TEMP 98.2
[2019-05-18 01:36] VITALS: BP 130/78; O2SAT 99
--- NOTE | 2019-05-18 08:25 | RAD REPORT ---
EXAM DESCRIPTION: RAD - Knee Left 3 View - 05/18/2019 3:35 am CLINICAL HISTORY: PAIN COMPARISON: No comparisons FINDINGS: No fracture or dislocation. No suprapatellar joint effusion.
== END 2019-05-18 01:31 | disposition home or self-care (01) ==
LOC: ER 23:38
DX: M23.92 Unspecified internal derangement of left knee (principal); W10.2XXA Fall (on)(from) incline, initial encounter; Y93.89 Activity, other specified; Y92.9 Unspecified place or not applicable; Z91.040 Latex allergy status; Z88.2 Allergy status to sulfonamides; Z88.8 Allergy status to other drugs, medicaments and biological substances

== ENCOUNTER 2023-02-14 20:56 | Emergency (ER) | payer OTHER, SELFPAY ==
--- OUTSIDE RECORDS SUMMARY | 2023-02-14 21:00 | XMS REPORT | Continuity of Care Document ---
:1975 Author Organization [facility] t Address [address] [facility] [address] [place] [id number] Care Team Providers Name Role Phone PCP, PATIENT DOES NOT HAVE A Primary Care Physician UnavailAmanda Bennett Attending Clinician Unavailable Abhinav Escoto Attending Clinician Unavailable Zuleika Agosto Attending Clinician Unavailable CRISTIAN MARES Attending Clinician Unavailable Cristian Mares MD Attending Clinician Problems Condition Condition Condition Status Onset Resolution Last Treating Co mments Source Name Details Category Date Date Treatment Clinician Date [id number] Irregular Problem Active Com mon heart rate [facility] [id number] Chronic Problem Active Commo n anxiety [facility] [id number] Other Problem Active Common specified Spirit respirator - CHI y [facility] [id number] Current Problem Active Common moderate Spirit episode of - [facility]I major [facility] disorder [facility] episode [id number] Obesity Problem Active Commo n (BMI Spirit 35.0-39.9 - CHI without [facility]) [facility] [id number] Essential Problem Active Comm on hypertensi Spirit on - [facility] [id number] Seasonal Problem Active Comm on allergies [facility] - [facility] [id number] Constipati Problem Active Com mon on, Spirit unspecifie - [facility] d [facility] No known No known Disease Unive rs active active ity of problems problems [facility] Allergies, Adverse Reactions, Alerts Allergy Allergy Status Severity Reaction(s) Onset Inactive Treating Comm ents Source Name Type Date Date Clinician Sulfamet Propensi Active Hives 2020-07 Univer s hoxazole ty to 2-09 ity of -Trimeth adverse 00:00: [place] oprim reaction 00 [facility] Paroxeti Propensi Active Hives 2020-07 Univer s ne Hcl ty to 2-09 ity of adverse 00:00: [place] reaction 00 Medical [facility] SULFAMET DRUG Active Hives 2020-07 Univers HOXAZOLE 2- ity of -TRIMETH 00:00: [place] OPRIM 00 [facility] PAROXETI DRUG Active Hives 2020-07 Univers NE HCL INGREDI 2- ity of 00:00: [place] 00 [facility] PAROXETI DRUG Active Hives 2018-07 Univers NE HCL INGREDI 2- ity of 00:00: [place] 00 [facility] paroxeti paroxeti Active hives Common ne ne Spirit [facility] sulfamet sulfamet Active hives Common hoxazole hoxazole Spirit / / - CHI trimetho trimetho [facility] Social History Social Habit Start Date Stop Date Quantity Comments Source History of Tobacco Never Smoker Comm on [facility] Sex Assigned At Common Sp hardy [facility] Exposure to Not sure [facility] SARS-CoV-2 (event[facility] Smoking Status Start Date Stop Date Source Unknown if ever smoked Universit [facility] Never Smoker [facility] Medications Ordered Filled Start Stop Current Ordering Indication Dosage Frequency Signature Comments Components Source Medication Medication Date Date Medication? Clinician (SIG) Name Name No known 2020-07 No Univers medications 2-09 ity of 08:23: [place] [facility] Metoprolol Metoprolol 2019-07 No 1{table QD Metoprolol Succinate Succinate 0-29 t} Succinate ER 25 MG ER 25 MG 00:00: ER 25 MG 00 Metoprolol Metoprolol 2019-07 No 1{table QD Metoprolol Succinate Succinate 0-29 t} Succinate ER 25 MG ER 25 MG 00:00: ER 25 MG 00 Sertraline Sertraline 2020-0 No 1{table QD Sertraline HCl 25 MG HCl 25 MG 9-30 t} HCl 25 MG 00:00: 00 Sertraline Sertraline 2019-0 No 1{table QD Sertraline HCl 25 MG HCl 25 MG 9-30 t} HCl 25 MG 00:00: 00 Sertraline Sertraline 2019-0 No 1{table QD Sertraline HCl 25 MG HCl 25 MG 9-30 t} HCl 25 MG 00:00: 00 Sertraline Sertraline 0 No 1{table QD Sertraline HCl 50 MG HCl 50 MG 9-30 t} HCl 50 MG 00:00: 00 Sertraline Sertraline No 1{table QD Sertraline HCl 50 MG HCl 50 MG 9-30 t} HCl 50 MG 00:00: 00 Ciprofloxac Ciprofloxac 2019- 2020- No Amanda 1 tablet Common in HCl in HCl 02-27 [place] Spirit 00:00: 00:00 - CHI 00 :00 [facility] Phentermine Phentermine 2020- No Amanda 1 tablet Common HCl HCl 01-28 [place] Spirit 00:00: 00:00 - CHI 00 :00 [facility] Flonase Flonase Yes Amanda 2 sprays Comm on [place] in each Spirit nostril - [facility] Albuterol Albuterol Yes Amanda 1 puff as Common Sulfate HFA Sulfate HFA [place] needed Spirit - [facility] Lisinopril Lisinopril Yes Amanda 1 tablet Common [place] Orally Spirit Once a day - [facility] Flonase 50 Flonase 50 No 2{spray QD Flonase 50 MCG/ACT MCG/ACT s_in_ea MCG/ACT ch_nost ril} Lisinopril Lisinopril No Lisinopril 20 MG 20 MG 20 MG Albuterol Albuterol No 1{puff_ Albuterol Sulfate HFA Sulfate HFA as_need Sulfate 108 (90 108 (90 ed} HFA 108 Base) Base) (90 Base) MCG/ACT MCG/ACT MCG/ACT Flonase 50 Flonase 50 No 2{spray QD Flonase 50 MCG/ACT MCG/ACT s_in_ea MCG/ACT ch_nost ril} Lisinopril Lisinopril No Lisinopril 20 MG 20 MG 20 MG Albuterol Albuterol No 1{puff_ Albuterol Sulfate HFA Sulfate HFA as_need Sulfate 108 (90 108 (90 ed} HFA 108 Base) Base) (90 Base) MCG/ACT MCG/ACT MCG/ACT Lisinopril Lisinopril No Lisinopril 20 MG 20 MG 20 MG Albuterol Albuterol No 1{puff_ Albuterol Sulfate HFA Sulfate HFA as_need Sulfate 108 (90 108 (90 ed} HFA 108 Base) Base) (90 Base) MCG/ACT MCG/ACT MCG/ACT Flonase 50 Flonase 50 No 2{spray QD Flonase 50 MCG/ACT MCG/ACT s_in_ea MCG/ACT ch_nost ril} Flonase 50 Flonase 50 No 2{spray QD Flonase 50 MCG/ACT MCG/ACT s_in_ea MCG/ACT ch_nost ril} Lisinopril Lisinopril No Lisinopril 20 MG 20 MG 20 MG Albuterol Albuterol No 1{puff_ Albuterol Sulfate HFA Sulfate HFA as_need Sulfate 108 (90 108 (90 ed} HFA 108 Base) Base) (90 Base) MCG/ACT MCG/ACT MCG/ACT Flonase 50 Flonase 50 No 2{spray QD Flonase 50 MCG/ACT MCG/ACT s_in_ea MCG/ACT ch_nost ril} Lisinopril Lisinopril No Lisinopril 20 MG 20 MG 20 MG Albuterol Albuterol No 1{puff_ Albuterol Sulfate HFA Sulfate HFA as_need Sulfate 108 (90 108 (90 ed} HFA 108 Base) Base) (90 Base) MCG/ACT MCG/ACT MCG/ACT Phentermine Phentermine 2020- No QD Phentermin HCl 37.5 MG HCl 37.5 MG 12-29 e HCl 37.5 00:00 MG :00 Phentermine Phentermine 2020- No QD Phentermin HCl 37.5 MG HCl 37.5 MG 12-29 e HCl 37.5 00:00 MG :00 Phentermine Phentermine 2020- No QD Phentermin HCl 37.5 MG HCl 37.5 MG 12-29 e HCl 37.5 00:00 MG :00 Phentermine Phentermine 2019- No 1{table QD Phentermin HCl 37.5 MG HCl 37.5 MG 12-29 t} e HCl 37.5 00:00 MG :00 Phentermine Phentermine 2019- No 1{table QD Phentermin HCl 37.5 MG HCl 37.5 MG 12-29 t} e HCl 37.5 00:00 MG :00 Immunizations Ordered Immunization Filled Immunization Date Status Commen ts Source Name Name Poli COVID-19 Poli COVID-19 2021-10-07 Completed Vaccine Vaccine 00:00:00 Vital Signs Vital Name Observation Time Observation Value Comments Source Systolic blood 2021-06-11 15:00:00 131 mm[Hg] Univer sity [facility] Diastolic blood 2021-06-11 15:00:00 81 mm[Hg] Unive rsity [facility] Heart rate 2021-06-11 15:00:00 96 /min [facility] Body temperature 2021-06-11 15:00:00 36.33 [facility] Respiratory rate 2021-06-11 15:00:00 17 /min [facility] Oxygen saturation in 2021-06-11 15:00:00 99 /min [facility] blood by [facility] Pulse oximetry [place] Body height 2021-06-11 14:11:00 170.2 cm [facility] Body weight 2021-06-11 14:11:00 120.203 kg [facility] BMI 2021-06-11 14:11:00 41.50 kg/m2 [facility] height 2020-04-30 16:00:00 67 [in_i] [facility] weight 2020-04-30 16:00:00 240.4 [lb_av] [facility] temperature 2020-04-30 16:00:00 98.7 [degF] [facility] bmi 2020-04-30 16:00:00 37.65 kg/m2 [facility] blood pressure 2020-04-30 16:00:00 110 mm[Hg] Common [facility] - systolic [facility] blood pressure 2020-04-30 16:00:00 79 mm[Hg] Common [facility] - diastolic [facility] height 2020-04-02 09:40:00 67 [in_i] [facility] weight 2020-04-02 09:40:00 246.0 [lb_av] [facility] temperature 2020-04-02 09:40:00 98.8 [degF] [facility] bmi 2020-04-02 09:40:00 38.52 kg/m2 [facility] oximetry 2020-04-02 09:40:00 100 % [facility] respiratory rate 2020-04-02 09:40:00 16 /min Comm on [facility] blood pressure 2020-04-02 09:40:00 130 mm[Hg] Common [facility] - systolic [facility] blood pressure 2020-04-02 09:40:00 74 mm[Hg] Common [facility] diastolic [facility] Procedures Procedure Date / Time Performed Performing Clinician [facility] e CONSENT/REFUSAL FOR 2021-06-11 14:08:16 Doctor Unassigned, No Un [facility] DIAGNOSIS AND Name Medical Branch TREATMENT Encounters Start End Encounter Admission Attending Care Care Encounter Source Date/Time Date/Time Type Type Clinicians Facility Department ID 2021-07-29 Outpatient [place], STLMLC STLMLC [id number] Common 11:55:19 Amanda [id number] [facility] 2021-07-29 Outpatient [place], STLMLC STLMLC [id number] Common 11:52:44 Amanda [id number] [facility] 2021-07-29 Outpatient [place], STLMLC STLMLC [id number] Common 11:52:13 Amanda [id number] [facility] 2021-07-29 Outpatient [place], STLMLC STLMLC [id number] Common 11:33:11 Amanda [id number] [facility] 2021-07-29 Outpatient [place], STLMLC STLMLC [id number] Common 11:21:26 Abhinav [id number] [facility] 2021-07-29 Outpatient [place], STLMLC STLMLC [id number] Common 11:08:50 Abhinav [id number] [facility] 2021-07-29 Outpatient [place], STLMLC STLMLC [id number] Common 11:07:16 Abhinav [id number] [facility] 2021-07-29 Outpatient [place], STLMLC STLMLC [id number] Common 11:07:09 Abhinav [id number] [facility] 2021-07-29 Outpatient [place], STLMLC STLMLC [id number] Common 11:06:17 Abhinav [id number] [facility] 2021-07-29 Outpatient [place], STLMLC STLMLC [id number] Common 11:03:30 Zuleika [id number] [facility] 2021-07-29 Outpatient [place], STLMLC STLC [id number] Common 11:02:38 Zuleika [id number] [facility] 2021-07-29 Outpatient [place], STLMLC STLC [id number] Common 11:01:06 Zuleika [id number] [facility] 2023-02-09 2023-02-09 Outpatient SFA SFA [id number] Manpreet 07:25:59 07:25:59 0809 F Skyler 2021-10-07 2021-10-07 Outpatient GCCOVIDV GCCOVIDV [id number] GCCOVID 00:00:00 00:00:00 V 2021-06-11 2021-06-11 Emergency X SUZAN [facility] ERT [id number] Univers 08:14:00 09:10:00 CRISTIAN galan [facility] 2021-06-11 2021-06-11 [facility] [id number] Univers 08:14:00 09:10:00 [facility] [id number] it y of [place] [id number] [facility] [id number] [address] ([facility]) 2020-05-02 2020-05-02 (TEL) STLMLC STLMLC [id number] Co mmon 00:00:00 00:00:00 [facility] 2020-05-01 2020-05-01 (TEL) STLMLC STLMLC [id number] Co mmon 00:00:00 00:00:00 [facility] 2020-04-30 2020-04-30 OFFICE STLMLC STLMLC [id number] Co mmon 00:00:00 00:00:00 VISIT EST Spir it PT LEVEL 3 [facility] 2020-04-02 2020-04-02 OFFICE STLMLC STLMLC [id number] Co mmon 00:00:00 00:00:00 VISIT EST Spir it PT LEVEL 3 [facility] 2020-04-02 2020-04-02 (TEL) STLMLC STLMLC [id number] Co mmon 00:00:00 00:00:00 [facility] 2020-02-28 2020-02-28 [facility] [id number] Common 13:20:00 13:20:00 t [facility] [address] [facility] 2020-01-29 2020-01-29 [facility] [id number] Common 15:20:00 15:20:00 t [facility] [address] [facility] 2019-10-02 2019-10-02 [facility] [id number] Common 08:30:00 08:30:00 t [facility] Joint - [facility] Clinic [facility] 2019-09-18 2019-09-18 [facility] [id number] Common 17:00:00 17:00:00 t [facility] [address] [facility] 2019-09-03 2019-09-03 [facility] [id number] Common 09:17:00 09:17:00 t Specialty/U Sp hardy Specialty rology - CHI /Urology [facility] 2019-08-14 2019-08-14 [facility] [id number] Common 15:00:00 15:00:00 t [facility] Spiri t and Joint Joint - [facility]I Clinic of [facility] 2019-08-10 2019-08-10 [facility] [id number] Common 09:10:00 09:10:[address] [facility] 2019-08-09 2019-08-09 [facility] [id number] Common 09:54:00 09:54:[address] [facility] 2019-08-08 2019-08-08 [facility] [id number] Common 11:03:00 11:03:[address] [facility] 2019-08-06 2019-08-06 [facility] [id number] Common 11:40:00 11:40:[address] [facility] 2019-07-31 2019-07-31 [facility] [id number] Common 16:00:00 16:00:[address] [facility] 2019-07-30 2019-07-30 [facility] [id number] Common 15:02:00 15:02:00 t Specialty/U Sp hardy Specialty rology - CHI /Urology Clinic [facility] 2019-07-27 2019-07-27 [facility] [id number] Common 13:00:00 13:00:00 t Specialty/U Sp hardy Specialty rology - CHI /Urology Clinic [facility] 2019-07-19 2019-07-19 Out[facility] [id number] Common 10:40:00 10:40:[address] [facility] Results Test Description Test Time Test Comments Results Result Comments Source TSH, THIRD GENERATION 2021-09-24 03:59:32 Test Item Value Reference Range Interpretation Comme nts TSH, THIRD GENERATION (test 1.790 UIU/ML 0.400-4.100 UNLESS OTHERWISE INDICATED, code = 2821) ALL TESTING PER FORMED ATCLINICAL PATH OLOGY LABORATORIES, I [place]. [address] [place], [place] [address] [employer]UL[employer] MIXER OPERATOR: HENRY RUELAS M.D. CLIA NUMB ER [id number] [place] [id number] HEMOGLOBIN [id number] 04:06:45 Test Item Value Reference Range Interpretation Comments HEMOGLOBIN A1c (test 5.3 % 4.2-5.6 UNLESS OTHERWISE code = 24288) INDICATED, ALL TESTING PERFORMED ATCLI NICAL PATHOLOGY [facility]. [address] [place] [address] [facility] DIRECTOR: HENRY RUELAS M.D. CLIA NUMBER [id number] [place] N O. [id number] COMPREHENSIVE METABOLIC [id number] 03:45:53 Test Item Value Reference Range Interpretation Comments GLUCOSE (test code = 84 MG/DL 70-99 2216) BUN (test code = 17 MG/DL 6-20 2207) CREATININE (test 0.81 MG/DL 0.60-1.30 code = 2214) eGFR (2020 CKD-EPI) 91 ML/MIN/1.73 >60 (test code = 55301) CALC BUN/CREAT (test 21 RATIO 6-28 code = 2235) SODIUM (test code = 139 MEQ/L 366-246 1902) POTASSIUM (test code 4.4 MEQ/L 3.5-5.4 = 2228) CHLORIDE (test code 101 MEQ/L 95-107 = 2215) CARBON DIOXIDE (test 25 MEQ/L 19-31 code = 2206) CALCIUM (test code = 9.4 MG/DL 8.5-10.5 2208) PROTEIN, TOTAL (test 7.0 G/DL 6.1-8.3 code = 2229) ALBUMIN (test code = 4.0 G/DL 3.5-5.2 2200) CALC GLOBULIN (test 3.0 G/DL 1.9-3.7 code = 2240) CALC A/G RATIO (test 1.3 RATIO 1.0-2.6 code = 2234) BILIRUBIN, TOTAL 0.6 MG/DL See_Comment [Automated message] (test code = 2207) The syste m which generated this result transmit iván reference range : <=1.2. The refe rence range was not u sed to interpret th is result as normal/abnormal . ALKALINE PHOSPHATASE 57 U/L 40-116 (test code = 2203) AST (test code = 19 U/L 9-2217) ALT (test code = 16 U/L -40 2218) LIPID [id number] 03:45:53 Test Item Value Reference Range Interpretation Comments CHOLESTEROL (test 199 MG/DL <200 code = 2210) TRIGLYCERIDES (test 122 MG/DL <150 code = 2232) HDL CHOLESTEROL (test 46 MG/DL >39 code = 2220) CALC LDL CHOL (test 130 MG/DL <100 H NOTE: C ALCULATED LDL code = 2237) IS BASED ON YAQUELIN-BOLANOS METHOD WHICHINCLUDES ADJUSTABLE TRIGLYCERIDE:VL DL CHOLESTEROL RAT IO.THIS FACTOR VARIES B Y MEASURED TRIGLY CERIDE AND NON-HDLCHOL ESTEROL CONCENTRATIONS WITH INCREASED CALCU LATED LDL SEENIN HIGH ER TRIGLYCERIDE OR LOWER NON-HDL SPECIME NS. FOR MOREINFORMATION , SEE CLIENT ANNOUNCE MENT AT [email or web address] RISK RATIO LDL/HDL 2.83 RATIO <3.22 (test code = 2238)
--- NOTE | 2023-02-14 21:39 | EDPHYS ---
Physician Documentation [facility] Name: Betsy Alberts Age: 47 yrs Sex: Female : 1975 Arrival Date: 02/14/2023 Time: 20:56 Bed IW2 Private MD: ED Physician Varghese Murry HPI: 02/14 23:45 This 47 yrs old Female presents to ER via Ambulatory with complaints of Leg Injury. kb 23:45 the patient presents with a swollen area of the right lyon. Description: erythematous, kb swollen. Onset: The symptoms/episode began/occurred yesterday. Possible cause(s): tattoo. Associated signs and symptoms: Pertinent positives: erythema, swelling, Pertinent negatives: discharge, drainage, foreign body sensation, fever, headache, nausea, shortness of breath, vomiting. Modifying factors: the symptoms are alleviated by nothing, the symptoms are aggravated by nothing. Severity of symptoms: At their worst the symptoms were mild, moderate, in the emergency department the symptoms have improved, mildly. The patient has not experienced similar symptoms in the past. The patient has not recently seen a physician. Pt reports she had some swelling to right lower extremity that she was given keflex for last week. States it was getting better, the swelling had gone down significantly. States she got a tattoo to right lyon and now has redness around tattoo and part of her tattoo had peeled off. Denies fever. ROS: 23:44 Constitutional: Negative for fever, chills, and weight loss. kb 23:44 Skin: Positive for erythema, swelling, of the right lyon. 23:44 All other systems are negative. Exam: 23:44 Constitutional: This is a well developed, well nourished patient who is awake, alert, kb and in no acute distress. Head/Face: Normocephalic, atraumatic. ENT: Moist Mucous membranes Cardiovascular: Regular rate and rhythm with a normal S1 and S2. No gallops, murmurs, or rubs. No pulse deficits. Respiratory: Respirations even and unlabored. No increased work of breathing. Talking in full sentences MS/ Extremity: Pulses equal, no cyanosis. Neurovascular intact. Full, normal range of motion. Neuro: Awake and alert, GCS 15, oriented to person, place, time, and situation. Moves all extremities. Normal gait. 23:44 Skin: cellulitis, that is mild, on the right lyon. Vital Signs: 21:37 Pulse 79; Resp 18; Temp 98.6; Pulse Ox 98% ; Weight 127.01 kg; Height 5 ft. 7 in. ; vc1 Pain 7/10; 21:43 BP 144 / 93; vc1 21:37 Body Mass Index 43.85 (127.01 kg, 170.18 cm) vc1 21:37 Pain Scale: Adult vc1 MDM: 21:32 Patient medically screened. kb 23:44 Data reviewed: vital signs, nurses notes. kb 23:47 Differential diagnosis: abscess, allergic reaction, cellulitis, insect bite. Test kb considered but Not performed: Labs: cbc, basic considered but pt is nontoxic in appearance and afebrile. Pt educated to return if symptoms persist or worsen.. Counseling: I had a detailed discussion with the patient and/or guardian regarding: the historical points, exam findings, and any diagnostic results supporting the discharge/admit diagnosis, the need for outpatient follow up, a family practitioner, to return to the emergency department if symptoms worsen or persist or if there are any questions or concerns that arise at home. Administered Medications: 21:45 Drug: Doxycycline PO 100 mg Route: PO; vc1 Disposition: 02/15 00:42 Co-signature as Attending Physician, Varghese Murry MD I agree with the assessment sp4 and plan of care. I reviewed the patient's care provided by the Advanced Practice Provider and agree with the diagnosis and treatment plan. Disposition Summary: 02/14/23 21:39 Discharge Ordered Location: Home kb Condition: Stable kb Diagnosis - Local infection of the skin and subcutaneous tissue, unspecified kb Followup: kb - With: Emergency Department - When: As needed - Reason: Worsening of condition Followup: kb - With: Private Physician - When: 2 - 3 days - Reason: Recheck today's complaints, Continuance of care, Re-evaluation by your physician Discharge Instructions: - Discharge Summary Sheet kb - Wound Infection, [id number] kb Forms: - Medication Reconciliation Form kb - Thank You Letter kb - Antibiotic Education kb - Prescription Opioid Use kb - Patient Portal Instructions kb - Leadership Thank You Letter kb Prescriptions: - Doxycycline Hyclate 100 mg Oral Tablet - take 1 tablet by ORAL route every 12 hours; 20 tablet; Refills: 0, Product kb Selection Permitted Signatures: Stephanie Varma, MEGHNA MARKETING ASSISTANT MANAGER-Amberly Heath, RN RN vc1 Varghese Murry MD MD sp4
--- NOTE | 2023-02-14 21:45 | ER ---
Nurse's Notes [facility] Name: Betsy Alberts Age: 47 yrs Sex: Female : 1975 Arrival Date: 02/14/2023 Time: 20:56 Bed IW2 Private MD: Diagnosis: Local infection of the skin and subcutaneous tissue, unspecified Presentation: 02/14 21:37 Chief complaint: Patient states: I got a tattoo and it got infected I got put on some vc1 antibiotics and now today the face came off. Coronavirus screen: Vaccine status: Patient reports receiving the 2nd dose of the covid vaccine. plus booster Moderna At this time, the client does not indicate any symptoms associated with coronavirus-19. Ebola Screen: Patient negative for fever greater than or equal to 101.5 degrees Fahrenheit, and additional compatible Ebola Virus Disease symptoms Patient denies exposure to infectious person. Patient denies travel to an Ebola-affected area in the 21 days before illness onset. No symptoms or risks identified at this time. Initial Sepsis Screen: Does the patient meet any 2 criteria? No. Patient's initial sepsis screen is negative. Does the patient have a suspected source of infection? No. Patient's initial sepsis screen is negative. Risk Assessment: Do you want to hurt yourself or someone else? Patient reports no desire to harm self or others. Onset of symptoms was February 14, 2023. 21:37 Method Of Arrival: Ambulatory vc1 21:37 Acuity: BLAIRE 3 vc1 Vital Signs: 21:37 Pulse 79; Resp 18; Temp 98.6; Pulse Ox 98% ; Weight 127.01 kg; Height 5 ft. 7 in. ; vc1 Pain 7/10; 21:43 BP 144 / 93; vc1 21:37 Body Mass Index 43.85 (127.01 kg, 170.18 cm) vc1 21:37 Pain Scale: Adult vc1 ED Course: 21:18 Patient arrived in ED. im 21:18 Stephanie Var[facility]NP-C [facility] kb 21:19 Varghese Murry MD is Attending Physician. kb 21:41 Arm band placed on. mb9 21:42 Triage completed. vc1 Administered Medications: 21:45 Drug: Doxycycline PO 100 mg Route: PO; vc1 Outcome: 21:39 Discharge ordered by . kb 21:45 Patient left the ED. vc1 Signatures: Stephanie Varma, MEGHAN AUTOMATIC I THREADING MACHINE FEEDER-Amberly Heath RN RN vc1 Patricia Aguilar RN RN mb9 Alexandria Parry
[2023-02-14 21:48] VITALS: TEMP 98.6; O2SAT 98
[2023-02-14 21:49] VITALS: BP 144/93
[2023-02-14] MEDS ORDERED: DOXYCYCLINE 100 MG CAP PO ONE (21:54)
== END 2023-02-14 21:45 | disposition home or self-care (01) ==
LOC: ER 20:56
DX: L03.115 Cellulitis of right lower limb (principal)
CPT/HCPCS: 99282

== ENCOUNTER 2023-05-27 12:18 | Emergency (ER) | payer OTHER ==
--- OUTSIDE RECORDS SUMMARY | 2023-05-27 12:21 | XMS REPORT | Continuity of Care Document ---
:1975 Author Organization [facility] t Address [address] [facility] [address] [place] [address] Care Team Providers Name Role Phone PCP, PATIENT DOES NOT HAVE A Primary Care Physician UnavailAmanda Bennett Attending Clinician Unavailable Abhinav Escoto Attending Clinician Unavailable Zuleika Agosto Attending Clinician Unavailable [email or web address] Attending Clinician Unavailable CRISTIAN MARES Attending Clinician Unavailable Cristian Mares MD Attending Clinician [email or web address] Admitting Clinician Unavailable Problems Condition Condition Condition Status Onset Resolution Last Treating Co mments Source Name Details Category Date Date Treatment Clinician Date [id number] Irregular Problem Active Com mon heart rate [facility] [id number] Chronic Problem Active Commo n anxiety [facility] [id number] Other Problem Active Common specified Spirit respirator - [facility] y disorders [facility] [id number] Current Problem Active Common moderate Spirit episode of - [facility] major [facility] prior episode [id number] Obesity Problem Active Commo n (BMI Spirit 35.0-39.9 - [facility] without [facility] comorbid[facility] y) [facility] [id number] Essential Problem Active Comm on hypertensi [facility] on [facility] [id number] Seasonal Problem Active Comm on allergies [facility] [id number] Constipati Problem Active Com mon on, Spirit unspecifie - [facility] d constipati [facility] on [facility] No known No known Disease Unive rs active active ity of problems problems [facility] Allergies, Adverse Reactions, Alerts Allergy Allergy Status Severity Reaction(s) Onset Inactive Treating Comm ents Source Name Type Date Date Clinician SULFAMET DRUG Active Hives 2020-07 Univers HOXAZOLE 2-09 ity of -TRIMETH 00:00: [place] OPRIM 00 [facility] PAROXETI DRUG Active Hives 2020-07 Univers NE HCL INGREDI 2- ity of 00:00: [place] 00 [facility] Sulfamet Propensi Active Hives 2020-07 Univer s hoxazole ty to 2-09 ity of -Trimeth adverse 00:00: [place] oprim reaction 00 [facility] Paroxeti Propensi Active Hives 2020-07 Univer s ne Hcl ty to 2-09 ity of adverse 00:00: [place] reaction 00 [facility] PAROXETI DRUG Active Hives 2018-07 Univers NE HCL INGREDI 2-04 ity of 00:00: [place] 00 [facility] paroxeti paroxeti Active hives Common ne ne [facility] sulfamet sulfamet Active hives Common hoxazole hoxazole Spirit / / - [facility] trimetho trimetho [facility] Social History Social Habit Start Date Stop Date Quantity Comments Source History of Tobacco Never Smoker Comm on [facility] Sex Assigned At Common hardy [facility] Exposure to Not sure [facility] SARS-CoV-2 (event) [facility] Smoking Status Start Date Stop Date Source Unknown if [facility] Never Smoker [facility] Medications Ordered Filled Start Stop Current Ordering Indication Dosage Frequency Signature Comments Components Source Medication Medication Date Date Medication? Clinician (SIG) Name Name No known 2020-07 No Univers medications 2-09 ity of 08:23: [place] 02 [facility] Metoprolol Metoprolol 2019-07 No 1{table QD Metoprolol Succinate Succinate 0-29 t} Succinate ER 25 MG ER 25 MG 00:00: ER 25 MG 00 Metoprolol Metoprolol 2019- No 1{table QD Metoprolol Succinate Succinate 0-29 t} Succinate ER 25 MG ER 25 MG 00:00: ER 25 MG 00 Sertraline Sertraline 2019-0 No 1{table QD [...] Sertraline 2019-0 No 1{table QD Sertraline HCl 50 MG HCl 50 MG 9-30 t} HCl 50 MG 00:00: 00 Sertraline Sertraline 2019-0 No 1{table QD Sertraline HCl 50 MG HCl 50 MG 9-30 t} HCl 50 MG 00:00: 00 Ciprofloxac Ciprofloxac 2019-0 2020- No Amanda 1 tablet Common in HCl in HCl 8 09- [place] Spirit 00:00: 00:00 - [facility] 00 :00 [facility] Phentermine Phentermine 0 2020- No Amanda 1 tablet Common HCl HCl 7- 08- [place] Spirit 00:00: 00:00 - [facility] 00 :00 [facility] Flonase Flonase Yes Amanda 2 sprays Comm on [place] in each Spirit nostril - [facility] Albuterol Albuterol Yes Amanda 1 puff as Common Sulfate HFA Sulfate HFA [place] needed [facility] - [facility] Lisinopril Lisinopril Yes Amanda 1 tablet Common [place] Orally Spirit Once a day - [facility] Flonase 50 Flonase 50 No 2{spray QD [...] 00:00 MG :00 Phentermine Phentermine 2019- No QD Phentermin HCl 37.5 MG HCl [...] blood 2021-06-11 15:00:00 131 mm[Hg] Univer sity of pressure [facility] Diastolic blood 2021-06-11 15:00:00 81 mm[Hg] Unive rsity of [facility] Heart rate 2021-06-11 15:00:00 96 /min [facility] Body temperature 2021-06-11 15:00:[address] [facility] Respiratory rate 2021-06-11 15:00:00 17 /min [facility] Oxygen saturation in 2021-06-11 15:00:00 99 /min [facility] Arterial blood by [facility] Pulse oximetry Branch Body height 2021-06-11 14:11:00 170.2 cm [facility] Body weight 2021-06-11 14:11:00 120.203 kg [facility] BMI 2021-06-11 14:11:00 41.50 kg/m2 [facility] height 2020-04-30 16:00:00 67 [in_i] Common S pirit [facility] weight 2020-04-30 16:00:00 240.4 [lb_av] Common Spirit - [facility] temperature 2020-04-30 16:00:00 98.7 [degF] Common S pirit [facility] bmi 2020-04-30 16:00:00 37.65 kg/m2 Common S [facility] blood pressure 2020-04-30 16:00:00 110 mm[Hg] Common [facility] - systolic [facility] blood pressure 2020-04-30 16:00:00 79 mm[Hg] Common [facility] - diastolic [facility] height 2020-04-02 09:40:00 67 [in_i] Common S [facility] weight 2020-04-02 09:40:00 246.0 [lb_av] [facility] temperature 2020-04-02 09:40:00 98.8 [degF] Common S [facility] bmi 2020-04-02 09:40:00 38.52 kg/m2 [facility] oximetry 2020-04-02 09:40:00 100 % [facility] respiratory rate 2020-04-02 09:40:00 16 /min Comm on [facility] blood pressure 2020-04-02 09:40:00 130 mm[Hg] Common [facility] - systolic [facility] blood pressure 2020-04-02 09:40:00 74 mm[Hg] [facility] diastolic [facility] Procedures Procedure Date / Time Performed Performing Clinician [facility] e CONSENT/REFUSAL FOR 2021-06-11 14:08:16 Doctor Unassigned, No Un [facility] DIAGNOSIS AND Name Medical Branch TREATMENT Encounters Start End Encounter Admission Attending Care Care Encounter Source Date/Time Date/Time Type Type Clinicians Facility Department ID 2021-07-29 Outpatient Tg STJENSEN [facility] [id number] Common 11:55:19 Amanda [id number] [facility] 2021-07-29 Outpatient Tg STUMERLC [facility] [id number] Common 11:52:44 Amanda [id number] [facility] 2021-07-29 Outpatient Tg STUMERLC [facility] [id number] Common 11:52:13 Amanda [id number] [facility] 2021-07-29 Outpatient [place], STLMLC STLC [id number] Common 11:33:11 Amanda 94412 [facility] 2021-07-29 Outpatient [place], STLMLC STLC [id number] Common 11:21:26 Abhinav [id number] [facility] 2021-07-29 Outpatient [place], STLMLC STLMLC [id number] Common 11:08:50 Abhinav [id number] [facility] 2021-07-29 Outpatient Esc[place], STLMLC STLC [id number] Common 11:07:16 Abhinav [id number] [facility] 2021-07-29 Outpatient Esc[place], STLMLC STLC [id number] Common 11:07:09 Abhinav [id number] [facility] 2021-07-29 Outpatient Esc[place], STLMLC STLC [id number] Common 11:06:17 Abhinav [id number] [facility] 2021-07-29 Outpatient Agosto, STLMLC STLC [id number] Common 11:03:30 Zuleika [id number] [facility] 2021-07-29 Outpatient Agosto, STLMLC STLC [id number] Common 11:02:38 Zuleika [id number] [facility] 2021-07-29 Outpatient Agosto, STLMLC STLC [id number] Common 11:01:06 Zuleika [id number] [facility] 2023-05-01 2023-05-01 Outpatient GC_GCBZW_Ka PRIV PRIV [id number] [place] 00:00:00 00:00:00 diyala_S [id number] [facility] 2023-03-09 2023-03-09 Outpatient SFA SFA [id number] Manpreet 08:10:49 08:10:49 0906 [place] 2023-03-04 2023-03-04 Outpatient SFA SFA [id number] Manpreet 17:06:38 17:06:38 0901 F Skyler 2023-03-01 2023-03-01 Outpatient SFA SFA [id number] Manpreet 09:20:44 09:20:44 [id number] [place] 2023-02-16 2023-02-16 Outpatient SFA SUE [id number] Manpreet 08:26:25 08:26:25 0816 F Skyler 2023-02-09 2023-02-09 Outpatient SFA SFA [id number] Manpreet 07:25:59 07:25:59 0809 F Skyler 2021-10-07 2021-10-07 Outpatient GCCOVIDV GCCOVIDV [id number] GCCOVID 00:00:00 00:00:00 V 2021-06-11 2021-06-11 [facility] [id number] Univers 08:14:00 09:10:00 CRISTIAN y [facility] 2021-06-11 2021-06-11 Emergency [facility] [id number] Univers 08:14:00 09:10:00 [id number] [facility] [place] [id number] [facility] [id number] [address] ([facility]) 2020-05-02 2020-05-02 (TEL) STLMLC STLMLC [id number] Co mmon 00:00:00 00:00:00 [facility] 2020-05-01 2020-05-01 (TEL) STLMLC STLMLC [id number] Co mmon 00:00:00 00:00:00 [facility] 2020-04-30 2020-04-30 OFFICE STLMLC STLMLC [id number] Co mmon 00:00:00 00:00:00 VISIT EST Spir it PT LEVEL 3 [facility] 2020-04-02 2020-04-02 OFFICE STLMLC STLMLC [id number] Co mmon 00:00:00 00:00:00 VISIT EST Spir it PT LEVEL 3 [facility] 2020-04-02 2020-04-02 (TEL) STLMLC STLMLC [id number] Co mmon 00:00:00 00:00:00 [facility] 2020-02-28 2020-02-28 [facility] [id number] Common 13:20:00 13:20:00 t [facility] [address] Spir it Road [facility] 2020-01-29 2020-01-29 [facility] [id number] Common 15:20:00 15:20:[address] Sp[address] [facility] 2019-10-02 2019-10-02 Out[facility] [id number] Common 08:30:00 08:30:00 t [facility] Joint - [facility] 2019-09-18 2019-09-18 [facility] [id number] Common 17:00:00 17:00:00 t [facility] [address] Spir it Road [facility] 2019-09-03 2019-09-03 [facility] [id number] Common 09:17:00 09:17:00 t Specialty/U Sp hardy Specialty rology - [facility] /[facility]rology [facility] 2019-08-14 2019-08-14 [facility] [id number] Common 15:00:00 15:00:00 t [facility] Bone [facility] Spiri t and Joint Joint - [facility] Clinic of [facility] 2019-08-10 2019-08-10 [facility] [id number] Common 09:10:00 09:10:00 t [facility] [address] Spir it Road [facility] 2019-08-09 2019-08-09 Out[facility] [id number] Common 09:54:00 09:54:[address] [facility] 2019-08-08 2019-08-08 [facility] [id number] Common 11:03:00 11:03:[address] [facility] 2019-08-06 2019-08-06 Outpatient [facility] [id number] Common 11:40:00 11:40:[address] [facility] 2019-07-31 2019-07-31 Out[facility] [id number] Common 16:00:00 16:00:[address] Spir it [facility] 2019-07-30 2019-07-30 Outpatient Brandon Rosado [id number] Common 15:02:00 15:02:00 t Specialty/U Sp hardy Specialty rology [facility] /[facility]rology [facility] 2019-07-27 2019-07-27 Outpatient Brandon Taylort [id number] Common 13:00:00 13:00:00 t Specialty/U Sp hardy Specialty rology - [facility] /[facility] 2019-07-19 2019-07-19 Outpatient Brandon Rosado [id number] Common 10:40:00 10:40:00 [facility] it [facility] Results Test Description Test Time Test Comments Results Result Comments Source TSH, THIRD GENERATION 2021-09-24 03:59:32 Test Item Value Reference Range Interpretation Comme nts TSH, THIRD GENERATION (test 1.790 UIU/ML 0.400-4.100 UNLESS OTHERWISE INDICATED, code = 2821) ALL TESTING PER FORMED ATCLINICAL PATH [facility] [place], [facility]. [address] [place] [address] 7 1442 ELECTRICAL TECH/PROJECT MANAGER: Rosalia RIVAS [id number] [place]. [id number] HEMOGLOBIN [id number] 04:06:45 Test Item Value Reference Range Interpretation Comments HEMOGLOBIN A1c (test 5.3 % 4.2-5.6 UNLESS OTHERWISE code = 88832) INDICATED, ALL TESTING [facility]FORMED [facility]. [address] [place] [id number] [facility] DIRECTOR: Rosalia RIVAS NUMBER [id number] CAP ACCREDITATION N O. [id number] COMPREHENSIVE METABOLIC [id number] 03:45:53 Test Item Value Reference Range Interpretation Comments GLUCOSE (test code = 84 MG/DL 70-99 2216) BUN (test code = 17 MG/DL -20 2207) CREATININE (test 0.81 MG/DL 0.60-1.30 code = 2214) eGFR (2020 CKD-EPI) 91 ML/MIN/1.73 >60 (test code = 28827) CALC BUN/CREAT (test 21 RATIO 6-28 code = 2235) SODIUM (test code = 139 MEQ/L 315-750 3277) POTASSIUM (test code 4.4 MEQ/L 3.5-5.4 = 222) CHLORIDE (test code 101 MEQ/L 95-107 = 221) CARBON DIOXIDE (test 25 MEQ/L 19-31 code = 2206) CALCIUM (test code = 9.4 MG/DL 8.5-10.5 2208) PROTEIN, TOTAL (test 7.0 G/DL 6.1-8.3 code = 222) ALBUMIN (test code = 4.0 G/DL 3.5-5.2 2200) CALC GLOBULIN (test 3.0 G/DL 1.9-3.7 code = 224) CALC A/G RATIO (test 1.3 RATIO 1.0-2.6 code = 223) BILIRUBIN, TOTAL 0.6 MG/DL See_Comment [Automated message] (test code = 2206) The syste m which generated this result transmit iván reference range : <=1.2. The refe rence range was not u sed to interpret th is result as normal/abnormal . ALKALINE PHOSPHATASE 57 U/L 40-116 (test code = 2203) AST (test code = 19 U/L 9-40 2217) ALT (test code = 16 U/L 5-40 2218) LIPID [id number] 03:45:53 Test Item Value Reference Range Interpretation [...] MOREINFORMATION , SEE CLIENT ANNOUNCE MENT AT [email or web address] [email or web address] RATIO LDL/HDL 2.83 RATIO <3.22 (test code = 223)
[2023-05-27 14:28] LABS: Absolute Lymphocytes (CBC) 1.9 K/uL (0.7-4.9); Lymphocytes % 15.1 % (15.3-44.8); MCV 82.1 fL (80-100); MPV 8.3 fL (7.6-11.3); Platelets 304 thou/uL (152-406); RBC Red Blood Cell Count 5.12 M/uL (3.86-4.86)
[2023-05-27 14:34] LABS: Specific Gravity 1.024 (1.005-1.030); Urine Bacteria <20 /HPF (<20); Urine Bilirubin NEGATIVE (Negative); Urine Blood 1+ (Negative); Urine Clarity Extremely Turbid (Clear); Urine Color Yellow (Yellow); Urine Glucose NEGATIVE (Negative); Urine Mucus 3+ /HPF (None Seen); Urine Protein 1+ (Negative); Urine RBC <5 /HPF (None Seen); Urine Urobilinogen Normal (Normal); Urine pH 5.5 (5.0-7.0)
[2023-05-27 14:45] LABS: Protime INR 1.15
[2023-05-27 14:46] LABS: Specific Gravity 1.024 (1.005-1.030)
[2023-05-27 14:51] LABS: Albumin 3.6 g/dL (3.4-5.0); Bilirubin Total 1.4 mg/dL (0.2-1.0); Protein, Total 7.3 g/dL (6.4-8.2)
[2023-05-27 15:17] LABS: Potassium 3.7 mEq/L (3.5-5.1)
[2023-05-27] MEDS ORDERED: MORPHINE 4 MG/ML SYR ONE (16:10)
[2023-05-27] MEDS ORDERED: NA CHLORIDE 0.9% 1,000 ML ONE (16:10)
[2023-05-27] MEDS ORDERED: ONDANSETRON 4 MG/2 ML VIAL ONE (16:10)
--- NOTE | 2023-05-27 17:16 | RAD REPORT ---
EXAM DESCRIPTION: CT - Abdomen Pelvis W Contrast - 05/27/2023 4:45 pm CLINICAL HISTORY: Abdominal pain/GI bleed COMPARISON: None TECHNIQUE: Computed axial tomography of the abdomen and pelvis was obtained. 100 cc Isovue-300 is ad ministered intravenously. Oral contrast was given. All CT scans are performed using dose optimization technique as appropriate and may include automated exposure control or mA/KV adjustment according to patient size. FINDINGS: The liver, spleen, pancreas, adrenals and left kidney appear unremarkable. Right renal cortical thinning perhaps secondary to prior inflammation Marked thickening wall of the distal transverse colon, a descending colon and proximal sigmoid with s tranding in the adjacent. No pneumatosis intestinalis. Normal appendix No adnexal mass Small amount ascites pelvis Spondylolysis L5. [id number] chronic compression deformity L5 vertebral body. Small umbilical h ernia IMPRESSION: Marked left colitis
--- NOTE | 2023-05-27 18:29 | EDPHYS ---
Physician Documentation [facility] Name: Betsy Alberts Age: 47 yrs Sex: Female : 1975 Arrival Date: 05/27/2023 Time: 12:18 Bed 13 Private MD: Ninfa Martinez ED Physician Joyce Escoto HPI: 05/27 13:00 This 47 yrs old Female presents to ER via Ambulatory with complaints of Vomiting, cp Rectal Bleeding, Abdominal Pain. 13:00 The patient presents to the emergency department with diarrhea, abdominal pain. Onset: cp The symptoms/episode began/occurred yesterday. Possible causes: unknown. Associated signs and symptoms: Pertinent positives: abdominal pain, bloody diarrhea, Pertinent negatives: fever, active vomiting. Severity of symptoms: in the emergency department the symptoms are unchanged despite home interventions. Patient reports continuous bloody diarrhea since yesterday and abdominal pain. Historical: - Allergies: 12:29 sulfamethoxazole-trimethoprim; cm10 12:29 paroxetine HCl; cm10 - PMHx: 12:29 Anxiety; Asthma; chronic uti; Hyperlipidemia; Hypertension; cm10 - PSHx: 12:29 Ligation of fallopian tube; cm10 - Immunization history:: Adult Immunizations unknown. - Social history:: Smoking status: Patient denies any tobacco usage or history of. ROS: 13:05 Constitutional: Negative for body aches, chills, fever, poor PO intake, cp 13:05 Eyes: Negative for injury, pain, redness, and discharge, cp 13:05 ENT: Negative for drainage from ear(s), ear pain, sore throat, difficulty swallowing, difficulty handling secretions, 13:05 Cardiovascular: Negative for chest pain, palpitations, 13:05 Respiratory: Negative for cough, shortness of breath, wheezing, 13:05 Abdomen/GI: Positive for abdominal pain, diarrhea, rectal bleeding, Negative for constipation, active vomiting, 13:05 : Negative for urinary symptoms, vaginal bleeding, 13:05 Neuro: Negative for altered mental status, dizziness, headache, syncope, weakness, 13:05 All other systems are negative, Exam: 13:10 Constitutional: The patient appears in no acute distress, alert, awake, non-toxic, well cp developed, well nourished, obese, 13:10 Head/Face: Normocephalic, atraumatic. cp 13:10 Eyes: Periorbital structures: appear normal, Conjunctiva: normal, no exudate, no injection, Sclera: no appreciated abnormality, Lids and lashes: appear normal, bilaterally, 13:10 ENT: External ear(s): are unremarkable, Nose: is normal, Mouth: Lips: moist, Oral mucosa: pink and intact, moist, Posterior pharynx: is normal, airway is patent, no erythema, no exudate, 13:10 Chest/axilla: Inspection: normal, 13:10 Cardiovascular: Rate: tachycardic, Rhythm: regular, 13:10 Respiratory: the patient does not display signs of respiratory distress, Respirations: normal, no use of accessory muscles, no retractions, labored breathing, is not present, Breath sounds: are clear throughout, no decreased breath sounds, no stridor, no wheezing, 13:10 Abdomen/GI: Inspection: obese Bowel sounds: active, all quadrants, Palpation: soft, in all quadrants, moderate abdominal tenderness, in the right lower quadrant and left lower quadrant, rebound tenderness, is not appreciated, involuntary guarding, is not appreciated, Rectal exam: Stool: maroon, mucous, hemorrhoid(s), are not appreciated, 13:10 Back: pain, is absent, ROM is normal, 13:10 Neuro: Orientation: to person, place \T\ time. Mentation: is normal, Motor: moves all fours, strength is normal, Sensation: is normal, Vital Signs: 12:28 BP 143 / 97; Pulse 101; Resp 18; Temp 98; Pulse Ox 99% on R/A; Weight 122.47 kg; Height cm10 5 ft. 7 in. ; Pain 7/10; 16:14 BP 122 / 80; Pulse 93; Resp 16; Pulse Ox 99% on R/A; db 17:05 BP 119 / 77; Pulse 93; Resp 18; Pulse Ox 99% on R/A; db 18:00 BP 128 / 80; Pulse 86; Resp 18; Pulse Ox 100% on R/A; db 18:30 BP 105 / 78; Pulse 88; Resp 18; Pulse Ox 100% on R/A; db 19:23 BP 127 / 77; Pulse 85; Resp 16 S; Pulse Ox 100% on R/A; ha1 12:28 Body Mass Index 42.29 (122.47 kg, 170.18 cm) cm10 12:28 Pain Scale: Adult cm10 MDM: 12:30 Patient medically screened. cp 14:00 Differential diagnosis: gastritis, viral gastroenteritis, gastroenteritis, colitis, cp diverticulitis, anemia. 18:28 Data reviewed: vital signs, nurses notes, lab test result(s), radiologic studies, CT cp scan. 18:28 Consideration of Admission/Observation Escalation of care including cp admission/observation considered. I considered the following discharge prescriptions or medication management in the emergency department Medications were administered in the Emergency Department. See MAR. ED course: VSS. Labs and results of CT discussed. Transfer for GI services offered, but patient would like to try outpatient treatment and to f/u with GI. Will return to ED worsening symptoms. 05/27 12:40 Order name: CBC with Diff; Complete Time: 16:30 05/27 16:30 Interpretation: Normal except: WBC 12.90; RBC 5.12; RDW 15.8; RAMIN% 77.4; LYM% 15.1; cp NEUT A 9.9. 05/27 12:40 Order name: CMP; Complete Time: 16:30 05/27 17:07 Interpretation: Normal except: GFR 88; BILIT 1.4; GLOB 3.7; A/G 1.0. 05/27 12:40 Order name: Lipase; Complete Time: 16:30 05/27 12:40 Order name: Test, Urine; Complete Time: 16:30 05/27 12:40 Order name: Urinalysis w/ reflexes; Complete Time: 16:30 05/27 17:22 Interpretation: Normal except: [facility] Extremely Turbid; UKET 2+; UBLD 1+; UPROT 1+; UNIT cp 1+; UESTR 500; UWBC 20-50; MUCUS 3+. 05/27 12:40 Order name: PT-INR; Complete Time: 16:30 05/27 18:06 Interpretation: Reviewed. 05/27 12:40 Order name: Ptt, Activated; Complete Time: 16:30 05/27 14:47 Order name: Urine Culture EDDC 05/27 13:07 Order name: CT Abd/Pelvis - PO and IV Contrast; Complete Time: 17:21 05/27 12:40 Order name: IV Saline Lock; Complete Time: 14:14 05/27 12:40 Order name: Labs collected and sent; Complete Time: 14:14 cp Administered Medications: 16:05 Drug: NS 0.9% IV 1000 ml IV at 1 bolus Per protocol; 1000 mL bolus Route: IV; Rate: 1 db bolus; Site: right antecubital; 16:05 Drug: Ondansetron IVP 4 mg IVP once; over 2 minutes Route: IVP; Site: right antecubital;db 16:05 Drug: morphine IVP or IV 4 mg IVP once over 4 mins Route: IVP; Infused Over: 4 mins; db Site: right antecubital; 18:35 Drug: Ciprofloxacin PO 500 mg PO once Route: PO; db 19:20 Follow up: Response: No adverse reaction ha1 18:38 Drug: MethylPrednisoLONE IVP 125 mg IVP once Route: IVP; Site: left forearm; db 18:38 Drug: metroNIDAZOLE IVPB 500 mg 100 ml IVPB once over 30 mins Volume: 100 ml; Route: db IVPB; Infused Over: 30 mins; Site: left forearm; 19:23 Follow up: Response: No adverse reaction; IV Status: Completed infusion ha1 Disposition Summary: 05/27/23 18:29 Discharge Ordered Notes: Location: Home cp Problem: new cp Symptoms: have improved cp Condition: Stable cp Diagnosis - Left sided colitis with rectal bleeding cp Followup: cp - With: Rakesh Tamez MD - When: 1 week - Reason: Recheck today's complaints Discharge Instructions: - Discharge Summary Sheet cp - Colitis cp Forms: - Medication Reconciliation Form cp - Thank You Letter cp - Antibiotic Education cp - Prescription Opioid Use cp - Patient Portal Instructions cp - Leadership Thank You Letter cp Prescriptions: - Cipro 500 mg Oral Tablet - take 1 tablet ORAL route every 12 hours for 10 days; 20 tablet; Refills: 0, cp Product Selection Permitted - Zofran 4 mg Oral Tablet - take 1 tablet ORAL route every 12 hours As needed; 20 tablet; Refills: 0, cp Product Selection Permitted - Metronidazole 500 mg Oral Tablet - take 1 tablet ORAL route every 8 hours; 30 tablet; Refills: 0, Product cp Selection Permitted - dicyclomine 20 mg Oral tablet - take 1 tablet ORAL route 4 times per day; 30 tablet; Refills: 0, Product cp Selection Permitted Signatures: Dispatcher [facility] EDDC Rickie Ha PA PA cp Mariela Lutz, RN RN db Rhona Regalado RN RN cm10 Debra Luna RN ha1 Corrections: (The following items were deleted from the chart) 17: 16:30 Normal except: GFR 88. cp cp
--- NOTE | 2023-05-27 18:29 | ER ---
Nurse's Notes [facility] Name: Betsy Alberts Age: 47 yrs Sex: Female : 1975 Arrival Date: 05/27/2023 Time: 12:18 Bed 13 Private MD: Ninfa Martinez Diagnosis: Left sided colitis with rectal bleeding Presentation: 05/27 12:28 Chief complaint: Patient states: having a BM yesterday after 9 days of not being able cm10 to go and ever since then she has had abdominal cramping, and bright red blood in her stool. Coronavirus screen: Vaccine status: Patient reports receiving the 2nd dose of the covid vaccine. Client denies travel out of the [place] in the last 14 days. Ebola Screen: Patient denies travel to an Ebola-affected area in the 21 days before illness onset. No symptoms or risks identified at this time. Initial Sepsis Screen: Does the patient meet any 2 criteria? No. Patient's initial sepsis screen is negative. Does the patient have a suspected source of infection? No. Patient's initial sepsis screen is negative. Risk Assessment: Do you want to hurt yourself or someone else? Patient reports no desire to harm self or others. Onset of symptoms was May 27, 2023. 12:28 Method Of Arrival: Ambulatory cm10 12:28 Acuity: BLAIRE 3 cm10 Triage Assessment: 12:30 General: Appears in no apparent distress. comfortable, Behavior is calm, cooperative. cm10 Pain: Complains of pain in abdomen Pain does not radiate. Pain currently is 7 out of 10 on a pain scale. Quality of pain is described as crampy. Historical: - Allergies: 12:29 sulfamethoxazole-trimethoprim; cm10 12:29 paroxetine HCl; cm10 - PMHx: 12:29 Anxiety; Asthma; chronic uti; Hyperlipidemia; Hypertension; cm10 - PSHx: 12:29 Ligation of fallopian tube; cm10 - Immunization history:: Adult Immunizations unknown. - Social history:: Smoking status: Patient denies any tobacco usage or history of. Screenin:36 [facility] ED Fall Risk Assessment (Adult) History of falling in the last 3 months, db including since admission No falls in past 3 months (0 pts) Confusion or Disorientation No (0 pts) Intoxicated or Sedated No (0 pts) Impaired Gait No (0 pts) Mobility Assist Device Used No (0 pt) Altered Elimination No (0 pt) Score/Fall Risk Level 0 - 2 = Low Risk Oriented to surroundings, Maintained a safe environment. Abuse screen: Denies threats or abuse. Denies injuries from another. Nutritional screening: No deficits noted. Tuberculosis screening: No symptoms or risk factors identified. Assessment: 14:15 Reassessment: No changes from previously documented assessment. Patient and/or family ll1 updated on plan of care and expected duration. Pain level reassessed. Patient is alert, oriented x 3, equal unlabored respirations, skin warm/dry/pink. 15:45 Reassessment: No changes from previously documented assessment. Patient and/or family cm10 updated on plan of care and expected duration. Pain level reassessed. 15:55 Reassessment: Patient appears in no apparent distress at this time. Patient and/or db family updated on plan of care and expected duration. Pain level reassessed. Patient is alert, oriented x 3, equal unlabored respirations, skin warm/dry/pink. General: Appears in no apparent distress. comfortable, Behavior is calm, cooperative. Pain: Complains of pain in abdomen Quality of pain is described as crampy. 16:28 Reassessment: Patient appears in no apparent distress at this time. Patient and/or db family updated on plan of care and expected duration. Pain level reassessed. Patient is alert, oriented x 3, equal unlabored respirations, skin warm/dry/pink. NOTIFIED CT PATIENT STATES FINISHED CT CONTRAST AT 1445. General: Appears in no apparent distress. comfortable, Behavior is calm, cooperative. Neuro: Level of Consciousness is awake, alert, obeys commands, Oriented to person, place, time, situation. GI: Abdomen is flat, non-distended, Bowel sounds present X 4 quads. 18:45 Reassessment: Patient appears in no apparent distress at this time. Patient is alert, db oriented x 3, equal unlabored respirations, skin warm/dry/pink. PT DC PENDING ANTIBIOTICS TO FINISH. 19:05 General: Appears comfortable, Behavior is calm, cooperative. Pain: Complains of pain in ha1 abdomen Pain does not radiate. Pain currently is 5 out of 10 on a pain scale. Quality of pain is described as crampy, Pain began. Neuro: Level of Consciousness is awake, alert, obeys commands, Oriented to person, place, time, situation. Cardiovascular: Capillary refill < 3 seconds Patient's skin is warm and dry. Respiratory: Airway is patent Respiratory effort is even, unlabored, Respiratory pattern is regular, symmetrical. GI: Abdomen is round non-distended, Bowel sounds present X 4 quads. Reports lower abdominal pain, vomiting. 19:15 Reassessment: DISCHARGE PENDING MEDICATION ADMINISTRATION. ha1 Vital Signs: 12:28 BP 143 / 97; Pulse 101; Resp 18; Temp 98; Pulse Ox 99% on R/A; Weight 122.47 kg; Height cm10 5 ft. 7 in. ; Pain 7/10; 16:14 BP 122 / 80; Pulse 93; Resp 16; Pulse Ox 99% on R/A; db 17:05 BP 119 / 77; Pulse 93; Resp 18; Pulse Ox 99% on R/A; db 18:00 BP 128 / 80; Pulse 86; Resp 18; Pulse Ox 100% on R/A; db 18:30 BP 105 / 78; Pulse 88; Resp 18; Pulse Ox 100% on R/A; db 19:23 BP 127 / 77; Pulse 85; Resp 16 S; Pulse Ox 100% on R/A; ha1 12:28 Body Mass Index 42.29 (122.47 kg, 170.18 cm) cm10 12:28 Pain Scale: Adult cm10 ED Course: 12:19 Patient arrived in ED. as 12:21 Ninfa Martinez is Private Physician. as 12:26 Rickie Ha PA is PHCP. cp 12:26 Joyce Escoto MD is Attending Physician. cp 12:29 Triage completed. cm10 12:30 Arm band placed on Patient placed in waiting room. cm10 14:10 Inserted saline lock: 22 gauge in left forearm, using aseptic technique. Blood ll1 collected. 14:14 Test, Urine Sent. ll1 14:14 Urinalysis w/ reflexes Sent. ll1 14:15 PT-INR Sent. ll1 14:15 Ptt, Activated Sent. ll1 14:15 CBC with Diff Sent. ll1 14:15 CMP Sent. ll1 14:15 Lipase Sent. ll1 15:44 Patient placed in an exam room, on a stretcher. cm10 16:27 Mariela Lutz, RN is Primary Nurse. db 16:47 CT Abd/Pelvis - PO and IV Contrast In Process Unspecified. EDMS 18:23 Rakesh Tamez MD is Referral Physician. cp 18:45 Patient has correct armband on for positive identification. Bed in low position. Call db light in reach. Side rails up X 1. Pulse ox on. NIBP on. Warm blanket given. 18:45 No provider procedures requiring assistance completed. db 19:24 Provided Education on: MEDICATION ADMINISTRATION AND FOLLOWING UP WITH GASTROENTEROLOGY ha1 . 19:24 IV discontinued, intact, bleeding controlled, No redness/swelling at site. Pressure ha1 dressing applied. Administered Medications: 16:05 Drug: NS 0.9% IV 1000 ml IV at 1 bolus Per protocol; 1000 mL bolus Route: IV; Rate: 1 db bolus; Site: right antecubital; 16:05 Drug: Ondansetron IVP 4 mg IVP once; over 2 minutes Route: IVP; Site: right antecubital;db 16:05 Drug: morphine IVP or IV 4 mg IVP once over 4 mins Route: IVP; Infused Over: 4 mins; db Site: right antecubital; 18:35 Drug: Ciprofloxacin PO 500 mg PO once Route: PO; db 19:20 Follow up: Response: No adverse reaction ha1 18:38 Drug: MethylPrednisoLONE IVP 125 mg IVP once Route: IVP; Site: left forearm; db 18:38 Drug: metroNIDAZOLE IVPB 500 mg 100 ml IVPB once over 30 mins Volume: 100 ml; Route: db IVPB; Infused Over: 30 mins; Site: left forearm; 19:23 Follow up: Response: No adverse reaction; IV Status: Completed infusion ha1 Medication: 18:45 VIS not applicable for this client. db Outcome: 18:29 Discharge ordered by . cp 19:24 Discharged to home ambulatory, with family, ha1 19:24 Condition: stable 19:24 Discharge instructions given to patient, family, Instructed on discharge instructions, follow up and referral plans. medication usage, Demonstrated understanding of instructions, follow-up care, medications, Prescriptions given X 4, 19:25 Patient left the ED. ha1 Signatures: Dispatcher [employer] EDMS Heather Regalado Corey, PA PA cp Laquita Preciado RN RN 1 Debra Luna RN RN Mariela Matos, RN RN db Rhona Regalado, RN RN cm10
[2023-05-27] MEDS ORDERED: METRONIDAZOLE 500mg IVPB 500 MG/100 ML BAG IV ONE (18:54)
[2023-05-27] MEDS ORDERED: METHYLPREDNISOLONE 125 MG INJ ONE (18:54)
[2023-05-27] MEDS ORDERED: CIPROFLOXACIN HCL 500 MG TAB ONE (18:54)
[2023-05-27 21:26] VITALS: TEMP 98
[2023-05-27 21:45] VITALS: O2SAT 100
[2023-05-27 21:48] VITALS: BP 127/77
== END 2023-05-27 19:25 | disposition home or self-care (01) ==
LOC: ER 12:18
DX: K51.511 Left sided colitis with rectal bleeding (principal); Z88.2 Allergy status to sulfonamides; Z88.8 Allergy status to other drugs, medicaments and biological substances
CPT/HCPCS: 87088; 85025; 81001; 87086; 36415; 81025; 85610; 85730; 87077; 87186; 83690; 80053; 74177; 99284; Q9967; J2930; J2405; J7030

== ENCOUNTER 2024-02-01 18:38 | Emergency (ER) | payer OTHER ==
--- OUTSIDE RECORDS SUMMARY | 2024-02-01 18:41 | XMS REPORT | Continuity of Care Document ---
Author Name Unknown Address [address] [facility] [address] [place] [address] [facility] thconnect Address [address] [facility] [place] [address] Care Team Providers Care Pilot Captain Name Role Phone PCP, PATIENT DOES NOT HAVE A Primary Care Physic anuj Unavailable Amanda Mas Attending Clinician Unavailable Abhinav Escoto Attending Clinician Unavailable Zuleika Agosto Attending Clinician Unavailable SURINDER ADEN Attending Clinician Unavailab ELIZA Bains Attending Clinician Unavailabl e LAB90 Attending Clinician Unavailable [email or web address]_S Attending Clinician Unavaila CRISTIAN Elliott Attending Clinician Unavailable Cristian Mares MD Attending Clinician [phone] [email or web address]_Kadihananea_S Admitting Clinician Unavailcyndie jackman Payers Payer Name Policy Type Policy Number Effective Date Expirati on Date Source [facility] 9 [id number] 2023 00:00:00 Problems Condition Name Condition Details Condition Category Status Onset Date Resolution Date Last Treatment Date Treating Clinician Comments Source Encounter for screening for malignant neoplasm of colon Encounter for screening for malignant neoplasm of colon Disease Active 11-08 00:00: 00 Sharita schaefer Moderate episode of recurrent major depressive disorder Moderate episode of recurrent major depressive disorder Disease Active 11-08 00:00: 00 Sharita schaefer Unable to lose weight Unable to lose weight Disease Active 09-21 00:00: 00 Sharita schaefer Class 3 severe obesity due to excess calories without serious comorbidit y with body mass index (BMI) of 40.0 to 44.9 in adult Class 3 severe obesity due to excess calories without serious comorbidit y with body mass index (BMI) of 40.0 to 44.9 in adult Disease Active 09-21 00:00: 00 Sharita schaefer Family history of diabetes mellitus Family history of diabetes mellitus Disease Active 09-21 00:00: 00 Sharita schaefer Family history of hypertensi on Family history of hypertensi on Disease Active 09-21 00:00: 00 Sharita schaefer [id number] Irregular heart rate Problem Active [facility] [id number] Chronic anxiety Problem Active [facility] [id number] Other specified respirator y disorders Problem Active [facility] [id number] Current moderate episode of major depressive disorder without prior episode Problem Active [facility] [id number] Obesity (BMI 35.0-39.9 without comorbidit y) Problem Active [facility] [id number] Essential hypertensi on Problem Active [facility] [id number] Seasonal allergies Problem Active [facility] [id number] Constipati on, unspecifie d constipati on type Problem Active [facility] No known active problems No known active problems Disease [facility] Allergies, Adverse Reactions, Alerts Allergy Name Allergy Type Status Severity Reaction(s) Onset Date Inactive Date Treating Clinician Comments Source SULFAMET HOXAZOLE -TRIMETH OPRIM DRUG Active Hives 2020-07 00:00: 00 [facility] PAROXETI NE HCL DRUG INGREDI Active Hives 2020-07 00:00: 00 [facility] Paroxeti ne Hcl Propensi ty to adverse reaction s Active Hives 2020-07 2 00:00: 00 [facility] Paroxeti ne Mesylate Propensi ty to adverse reaction s Active Hives 2020-07 00:00: 00 Sharita Steiner l Sulfamet hoxazole W-Trimet hoprim Propensi ty to adverse reaction s Active Hives 2020-07 00:00: 00 Sharita schaefer Latex Propensi ty to adverse reaction s Active Swelling 2019-0 08-14 00:00: 00 Sharita Kitchena olive PAROXETI NE HCL DRUG INGREDI Active Hives 2018-08-07 00:00: 00 [facility] paroxeti ne paroxeti ne Active hives [facility] sulfamet hoxazole / trimetho prim sulfamet hoxazole / trimetho prim Active hives [facility] Social History Social Habit Start Date Stop Date Quantity Comments Source Sexual orientation Glenis Mccullough - External History of tobacco use Cigarette Smoker Sharita mcfalrane - External Exposure to SARS-CoV-2 (event) Not sure [facility] Alcoholic beverage intake 2023-11-09 00:00:00 2023-11-09 00:00:00 Current drinker of alcohol (finding) Sharita Mccullough - External Tobacco use and exposure 2023-10-17 00:00:00 2023-10-17 00:00:00 Smokeless tobacco non-user Sharita Mccullough - External Alcohol intake 2023-09-22 00:00:00 2023-09-22 00:00:00 Current drinker of alcohol (finding) Sharita Mccullough - External History of Social function 2023-09-22 00:00:00 2023-09-22 00:00:00 Sharita Mccullough - External Sex [birth year] at 1975 00:00:00 1975 00:00:00 Sharita Seybold - External Smoking Status Start Date Stop Date Source Unknown if ever smoked [facility] Ex-smoker 2023-10-17 00:00:00 2023-10-17 00:00:00 Glenis aiken Jamel Allen Never Smoker [facility] Medications Ordered Medication Name Filled Medication Name Start Date Stop Date Current Medication? Ordering Clinician Indication Dosage Frequency Signature (SIG) Comments Components Source busPIRone HCl 5 MG oral Tablet 11-08 00:00: 00 Yes [id number] 5mg Q.5D Take 1 tablet (5 mg total) by mouth 2 times daily as needed. Sharita schaefer Topiramate 25 MG oral Tablet 10-23 00:00: 00 Yes [id number] 25mg Take 1 tablet (25 mg total) by mouth 2 times daily No driving on medication . Sharita schaefer Semaglutide -OVIDIO-Martinez ght Management 0.25 MG/0.5ML Subcutaneou s Solution Auto-inject or 09-21 00:00: 00 Yes [id number] 104 .25mg Inject 0.25 mg into the skin once a week. Sharita schaefer Lamotrigine 25 MG oral Tablet 2022-07 00:00: 00 Yes 25mg Take 1 tablet (25 mg total) by mouth every morning. Sharita schaefer Lamotrigine 25 MG oral Tablet 2022-07 00:00: 00 Yes 1{tbl} Take 1 tablet (25 mg total) by mouth every morning. Sharita schaefer No known medications 2020-07 08:23: 02 No [facility] Metoprolol Succinate ER 25 MG Metoprolol Succinate ER 25 MG 2019-07 0 00:00: 00 No 1{table t} QD Metoprolol Succinate ER 25 MG Sertraline HCl 25 MG Sertraline HCl 25 MG 04-02 00:00: 00 No 1{table t} QD Sertraline HCl 25 MG Sertraline HCl 50 MG Sertraline HCl 50 MG 04-02 00:00: 00 No 1{table t} QD Sertraline HCl 50 MG Ciprofloxac in HCl Ciprofloxac in HCl 02-27 00:00: 00 03-04 00:00 :00 No Amanda [place] 1 tablet [facility] Phentermine HCl Phentermine HCl 01-28 00:00: 00 02-27 00:00 :00 No Amanda [place] 1 tablet [facility] Flonase Flonase Yes Amanda [place] 2 sprays in each nostril [facility] Albuterol Sulfate HFA Albuterol Sulfate HFA Yes Amanda [place] 1 puff as needed [facility] Lisinopril Lisinopril Yes Amanda [place] 1 tablet Orally Once a day [facility] Flonase 50 MCG/ACT Flonase 50 MCG/ACT No 2{spray s_in_ea ch_nost ril} QD Flonase 50 MCG/ACT Lisinopril 20 MG Lisinopril 20 MG No Lisinopril 20 MG Albuterol Sulfate HFA 108 (90 Base) MCG/ACT Albuterol Sulfate HFA 108 (90 Base) MCG/ACT No 1{puff_ as_need ed} Albuterol Sulfate HFA 108 (90 Base) MCG/ACT Phentermine HCl 37.5 MG Phentermine HCl 37.5 MG 07-01 00:00 :00 No QD Phentermin e HCl 37.5 MG Immunizations Ordered Immunization Name Filled Immunization Name Date Status Comments Source Moderna COVID-19 Vaccine Moderna COVID-19 Vaccine 2021-10-07 00:00:00 Completed COVID-19 VACCINE MODERNA 6years-11years Unknown Completed Sharita Haskins d - External Vital Signs Vital Name Observation Time Observation Value Comments S ource Systolic blood pressure 2023-11-09 20:58:00 124 mm[Hg] Sharita Hernandez ld - External Diastolic blood pressure 2023-11-09 20:58:00 74 mm[Hg] Sharita martin - External Heart rate 2023-11-09 20:58:00 74 /min Yashira Mccullough - External Body temperature 2023-11-09 20:58:00 36.72 Kesha Sharita Seybold - External Respiratory rate 2023-11-09 20:58:00 18 /min Sharita Seybold - External Body height 2023-11-09 20:58:00 170.2 cm Josie ey Seybold - External Body weight 2023-11-09 20:58:00 123.832 kg Josie ey Seybold - External BMI 2023-11-09 20:58:00 42.76 kg/m2 Josie ey Seybold - External Oxygen saturation in Arterial blood by Pulse oximetry 2023-11-09 20:58:00 98 /min Sharita Seybo ld - External Respiratory rate 2023-09-22 13:19:00 18 /min Sharita Seybold - External Body height 2023-09-22 13:19:00 170.2 cm Josie ey Seybold - External Body weight 2023-09-22 13:19:00 126.554 kg Josie ey Seybold - External BMI 2023-09-22 13:19:00 43.70 kg/m2 Josie ey Seybold - External Oxygen saturation in Arterial blood by Pulse oximetry 2023-09-22 13:19:00 99 /min Sharita Barneyybo ld - External Systolic blood pressure 2023-09-22 13:19:00 128 mm[Hg] Sharita Seybo ld - External Diastolic blood pressure 2023-09-22 13:19:00 80 mm[Hg] Sharita Seybo ld - External Heart rate 2023-09-22 13:19:00 78 /min Yashira overton Seybold - External Body temperature 2023-09-22 13:19:00 36.5 Kesha Sharita Seybold - External Systolic blood pressure 2021-06-11 15:00:00 131 mm[Hg] [facility] Diastolic blood pressure 2021-06-11 15:00:00 81 mm[Hg] [facility] Heart rate 2021-06-11 15:00:00 96 /min [facility] Body temperature 2021-06-11 15:00:00 36.33 Kesha [facility] Respiratory rate 2021-06-11 15:00:00 17 /min [facility] Oxygen saturation in Arterial blood by Pulse oximetry 2021-06-11 15:00:00 99 /min [facility] Body height 2021-06-11 14:11:00 170.2 cm [facility] Body weight 2021-06-11 14:11:00 120.203 kg [facility] BMI 2021-06-11 14:11:00 41.50 kg/m2 [facility] height 2020-04-30 16:00:00 67 [in_i] [facility] weight 2020-04-30 16:00:00 240.4 [lb_av] Co [facility] temperature 2020-04-30 16:00:00 98.7 [degF] Com [facility] bmi 2020-04-30 16:00:00 37.65 kg/m2 Comm on [facility] blood pressure systolic 2020-04-30 16:00:00 110 mm[Hg[facility] blood pressure diastolic 2020-04-30 16:00:00 79 mm[Hg] Common [facility] height 2020-04-02 09:40:00 67 [in_i] Commo n [facility] weight 2020-04-02 09:40:00 246.0 [lb_av] Co [facility] temperature 2020-04-02 09:40:00 98.8 [degF] Com [facility] bmi 2020-04-02 09:40:00 38.52 kg/m2 Comm on [facility] oximetry 2020-04-02 09:40:00 100 % [facility] respiratory rate 2020-04-02 09:40:00 16 /min [facility] blood pressure systolic 2020-04-02 09:40:00 130 mm[Hg] [facility] blood pressure diastolic 2020-04-02 09:40:00 74 mm[Hg] [facility] Procedures Procedure Date / Time Performed Performing Clinicia n Source CONSENT/REFUSAL FOR DIAGNOSIS AND TREATMENT 2021-06-11 14:08:16 Doctor Unassigned, [place] [facility] Encounters Start Date/Time End Date/Time Encounter Type Admission Type Attending Clinicians Care Facility Care Department Encounter ID Source 2021-07-29 11:55:19 Outpatient Amanda Mas [facility] [id number] [facility] 2021-07-29 11:52:44 Outpatient Amanda MasLAKHWINDER [facility] [id number] [facility] 2021-07-29 11:52:13 Outpatient Amanda MasLAKHWINDER [facility] [id number] [facility] 2021-07-29 11:33:11 Outpatient Amanda MasLAKHWINDER [facility] [id number] [facility] 2021-07-29 11:21:26 Outpatient Escoto, Abhinav [facility] [id number] [facility] 2021-07-29 11:08:50 Outpatient Escoto, Abhinav [facility] [id number] [facility] 2021-07-29 11:07:16 Outpatient Escoto, Abhinav [facility] [id number] [facility] 2021-07-29 11:07:09 Outpatient Escoto, Abhinav [facility] [id number] [facility] 2021-07-29 11:06:17 Outpatient Escoto, Abhinav [facility] [id number] [facility] 2021-07-29 11:03:30 Outpatient AgostoRisas [facility] [id number] [facility] 2021-07-29 11:02:38 Outpatient AgostoRisa fernandos [facility] [id number] [facility] 2021-07-29 11:01:06 Outpatient AgostoRisas [facility] [id number] [facility] 2023-12-12 16:30:00 2023-12-12 16:30:00 Outpatient SURINDER ADEN [facility] [id number] [facility] 2023-12-09 15:30:00 2023-12-09 15:30:00 Outpatient SURINDER ADEN [facility] [id number] [facility] 2023-11-14 08:00:00 2023-11-14 08:00:00 Outpatient SURINDER ADEN [facility] [id number] [facility] 2023-11-09 16:00:00 2023-11-09 16:00:00 Outpatient SURINDER ADENMILAN NOEL [id number] [facility] 2023-11-09 00:00:00 2023-11-09 00:00:00 Outpatient SHARITA NOEL [id number] [facility] 2023-10-17 08:15:00 2023-10-17 08:15:00 Outpatient ELIZA SHARMA [facility] [id number] [facility] 2023-10-17 00:00:00 2023-10-17 00:00:00 Outpatient SURINDER ADENMILAN NOEL [id number] [facility] 2023-10-12 08:00:00 2023-10-12 08:00:00 Outpatient SURINDER ADEN SHARITA NOEL [id number] [facility] 2023-10-11 00:00:00 2023-10-11 00:00:00 Outpatient SURINDER ADEN SHARITA [id number] [facility] 2023-09-27 08:15:00 2023-09-27 08:15:00 Outpatient LAB90 SHARITA NOEL [id number] [facility] 2023-09-26 00:00:00 2023-09-26 00:00:00 Outpatient SURINDER ADEN SHARITA NOEL [id number] Sharita Seybold 2023-09-26 00:00:00 2023-09-26 00:00:00 Outpatient SURINDER ADEN SHARITA NOEL [id number] [facility] 2023-09-26 00:00:00 2023-09-26 00:00:00 Outpatient [facility]INDER ADEN [id number] [facility] 2023-09-22 09:15:00 2023-09-22 09:15:00 Outpatient LAB90 SHARITA NOEL [id number] [facility] 2023-09-22 08:30:00 2023-09-22 08:30:00 Outpatient SURINDER ADEN [id number] Sharita [facility] 2023-05-01 00:00:00 2023-05-01 00:00:00 Outpatient GC_GCBZW_Ka diyala_S [facility] [id number] [facility] 2023-03-09 08:10:49 2023-03-09 08:10:49 Outpatient SFA SFA [id number] Manpreet Aldrich Skyler 2023-03-04 17:06:38 2023-03-04 17:06:38 Outpatient SFA SFA 0901 Manpreet Aldrich Skyler 2023-03-01 09:20:44 2023-03-01 09:20:44 Outpatient SFA SFA [id number] Manpreet Aldrich Dawson 2023-02-16 08:26:25 2023-02-16 08:26:25 Outpatient SFA SFA [id number] Manpreet Aldrich Skyler 2023-02-09 07:25:59 2023-02-09 07:25:59 Outpatient SFA SFA [id number] Manpreet Holland 2021-10-07 00:00:00 2021-10-07 00:00:00 Outpatient GCCOVIDV GCCOVIDV [id number] [facility] V 2021-06-11 08:14:00 2021-06-11 09:10:00 Emergency X CRISTIAN MARES [facility] ERT [id number] [facility] 2021-06-11 08:14:00 2021-06-11 09:10:00 Emergency Cristian Mares [facility] [id number] [facility] 2020-05-02 00:00:00 2020-05-02 00:00:00 (TEL) STLMLC STLMLC [id number] [facility] 2020-05-01 00:00:00 2020-05-01 00:00:00 (TEL) STLMLC STLMLC [id number] [facility] 2020-04-30 00:00:00 2020-04-30 00:00:00 OFFICE VISIT EST PT LEVEL 3 STLMLC STLMLC [id number] [facility] 2020-04-02 00:00:00 2020-04-02 00:00:00 OFFICE VISIT EST PT LEVEL 3 STLMLC STLMLC [id number] [facility] 2020-04-02 00:00:00 2020-04-02 00:00:00 (TEL) STLMLC STLMLC [id number] [facility] 2020-02-28 13:20:00 2020-02-28 13:20:00 [facility] [id number] [facility] 2020-01-29 15:20:00 2020-01-29 15:20:00 [facility] [id number] [facility] 2019-10-02 08:30:00 2019-10-02 08:30:00 [facility] [id number] [facility] 2019-09-18 17:00:00 2019-09-18 17:00:00 [facility] [id number] [facility] 2019-09-03 09:17:00 2019-09-03 09:17:00 [facility] [id number] [facility] 2019-08-14 15:00:00 2019-08-14 15:00:00 [facility] [id number] [facility] 2019-08-10 09:10:00 2019-08-10 09:10:00 [facility] [id number] [facility] 2019-08-09 09:54:00 2019-08-09 09:54:00 [facility] Medicine [id number] [facility] 2019-08-08 11:03:00 2019-08-08 11:03:00 [facility] [id number] [facility] 2019-08-06 11:40:00 2019-08-06 11:40:00 [facility] [id number] [facility] 2019-07-31 16:00:00 2019-07-31 16:00:00 [facility] Medicine [id number] [facility] 2019-07-30 15:02:00 2019-07-30 15:02:00 [facility] [id number] [facility] 2019-07-27 13:00:00 2019-07-27 13:00:00 [facility] [id number] [facility] 2019-07-19 10:40:00 2019-07-19 10:40:00 [facility] Medicine [id number] [facility] Results Test Description Test Time Test Comments Results Result Co mments Source HEMOGLOBIN [id number] 04:06:45* Test Item Value Reference Range Interpretation Comme nts HEMOGLOBIN A1c (test code = 64768) 5.3 % 4.2-5.6 UNLESS OTHERWISE INDICATED, ALL TESTING PERFORMED [facility] [address] [place] [address] [employer]INDER CONTORT OPERATOR: HENRY RUELAS M.D. CLIA NUMBER [id number] [facility] [place] [id number] COMPREHENSIVE METABOLIC [id number] 03:45:53* Test Item Value Reference Range Interpretation Comme nts GLUCOSE (test code = 2216) 84 MG/DL 70-99 BUN (test code = 2207) 17 MG/DL 6-20 CREATININE (test code = 2213) 0.81 MG/DL 0.60-1.30 eGFR (2020 CKD-EPI) (test code = ) 91 ML/MIN/1.73 >60 CALC BUN/CREAT (test code = 2234) 21 RATIO 6-28 SODIUM (test code = 2230) 139 MEQ/L 133-146 POTASSIUM (test code = 2227) 4.4 MEQ/L 3.5-5.4 CHLORIDE (test code = 2214) 101 MEQ/L 95-107 CARBON DIOXIDE (test code = 2205) 25 MEQ/L 19-31 CALCIUM (test code = 2208) 9.4 MG/DL 8.5-10.5 PROTEIN, TOTAL (test code = 2228) 7.0 G/DL 6.1-8.3 ALBUMIN (test code = 2200) 4.0 G/DL 3.5-5.2 CALC GLOBULIN (test code = 2240) 3.0 G/DL 1.9-3.7 CALC A/G RATIO (test code = 2233) 1.3 RATIO 1.0-2.6 BILIRUBIN, TOTAL (test code = 2206) 0.6 MG/DL See_Comment [Automated me ssage] The system which generated this result transmitted reference range: <=1.2. The reference range was not used to interpret this result as normal/abnormal. ALKALINE PHOSPHATASE (test code = 2203) 57 U/L 40-116 AST (test code = 2217) 19 U/L 9-40 ALT (test code = 9) 16 U/L 5-40 LIPID [id number] 03:45:53* Test Item Value Reference Range Interpretation Comme nts CHOLESTEROL (test code = 0) 199 MG/DL <200 TRIGLYCERIDES (test code = 2232) 122 MG/DL <150 HDL CHOLESTEROL (test code = 2219) 46 MG/DL >39 CALC LDL CHOL (test code = 2236) 130 MG/DL <100 H NOTE: CALCULATED LDL IS BASED ON YAQUELIN-BOLANOS METHOD WHICHINCLUDES ADJUSTABLE TRIGLYCERIDE:VLDL CHOLESTEROL RATIO.THIS FACTOR VARIES BY MEASURED TRIGLYCERIDE AND NON-HDLCHOLESTEROL CONCENTRATIONS WITH INCREASED CALCULATED LDL SEENIN HIGHER TRIGLYCERIDE OR LOWER NON-HDL SPECIMENS. FOR MOREINFORMATION, SEE CLIENT ANNOUNCEMENT AT [email or web address] RATIO LDL/HDL (test code = 2238) 2.83 RATIO <3.22 Notes Date/Time Note Provider Source 2023-11-09 16:07:06 Chief Complaint Patient presents with Physical Annual Physical Soraya Murrell LVN [facility] 2023-09-22 08:20:54 Chief Complaint Patient presents with Weight Problem Janene Contreras LVN [facility]
[2024-02-01 19:32] LABS: Specific Gravity 1.023 (1.005-1.030); Sqamous Epithelial <5 /HPF (None Seen); Urine Bacteria None Seen /HPF (<20); Urine Bilirubin NEGATIVE (Negative); Urine Blood Negative (Negative); Urine Clarity Turbid (Clear); Urine Color Light-Yellow (Yellow); Urine Crystals Unidentified Few /HPF (None Seen); Urine Culture Reflex Order NOT NEEDED; Urine Glucose NEGATIVE (Negative); Urine Ketones NEGATIVE (Negative); Urine Microscopic Reflex YN ORDER UMIC; Urine Nitrite NEGATIVE (Negative); Urine Protein NEGATIVE (Negative); Urine RBC <5 /HPF (None Seen); Urine Urobilinogen 1+ (Normal); Urine WBC <5 /HPF (<5)
--- NOTE | 2024-02-01 20:30 | ER ---
Nurse's Notes [facility] Name: Betsy Alberts Age: 48 yrs Sex: Female : 1975 Arrival Date: 02/01/2024 Time: 18:38 Bed 13 Private MD: Diagnosis: Low back pain Presentation: 01/31 18:59 Chief complaint: Patient states: I feel like its a really bad UTI, I have them a lot. ko1 Coronavirus screen: At this time, the client does not indicate any symptoms associated with coronavirus-19. Ebola Screen: No symptoms or risks identified at this time. Initial Sepsis Screen: Does the patient meet any 2 criteria? No. Patient's initial sepsis screen is negative. Does the patient have a suspected source of infection? No. Patient's initial sepsis screen is negative. Risk Assessment: Do you want to hurt yourself or someone else? Patient reports no desire to harm self or others. Onset of symptoms was February 01, 2024. 18:59 Method Of Arrival: Ambulatory ko1 18:59 Acuity: BLAIRE 3 ko1 Triage Assessment: 19:00 General: Appears in no apparent distress. uncomfortable, Behavior is calm, cooperative, ko1 appropriate for age. Pain: Complains of pain in left low back and right low back. Musculoskeletal: Circulation, motion, and sensation intact. Capillary refill < 3 seconds, Range of motion: intact in all extremities. 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 - Infectious Disease History:: Denies. - Social history:: Smoking status: Patient denies any tobacco usage or history of. Screenin:06 [facility] ED Fall Risk Assessment (Adult) History of falling in the last 3 months, mb9 including since admission No falls in past 3 months (0 pts) Confusion or Disorientation No (0 pts) Intoxicated or Sedated No (0 pts) Impaired Gait No (0 pts) Mobility Assist Device Used No (0 pt) Altered Elimination No (0 pt) Score/Fall Risk Level 0 - 2 = Low Risk Oriented to surroundings, Maintained a safe environment, Educated pt \T\ family on fall prevention, incl call for assistance when getting out of bed. Abuse screen: Denies threats or abuse. Nutritional screening: No deficits noted. Tuberculosis screening: No symptoms or risk factors identified. Assessment: 19:11 General: Appears in no apparent distress. Behavior is calm, cooperative. Pain: mb9 Complains of pain in back Pain does not radiate. Pain currently is 7 out of 10 on a pain scale. Quality of pain is described as throbbing, Pain began suddenly, Is continuous. Neuro: Lucero Agitation-Sedation Scale (RASS): 0 - Alert and Calm Level of Consciousness is awake, alert, obeys commands, Oriented to person, place, time, situation, Appropriate for age. Cardiovascular: Patient's skin is warm and dry. Respiratory: Airway is patent Respiratory effort is even, unlabored, Respiratory pattern is regular, symmetrical, Breath sounds are clear bilaterally. GI: No signs and/or symptoms were reported involving the gastrointestinal system. : No signs and/or symptoms were reported regarding the genitourinary system. EENT: No signs and/or symptoms were reported regarding the EENT system. Derm: Skin is pink, warm \T\ dry. Musculoskeletal: Range of motion: intact in all extremities. Vital Signs: 18:59 BP 178 / 86; Pulse 72; Resp 18; Temp 97.8; Pulse Ox 100% ; ko1 19:49 BP 121 / 88; Pulse 70; Resp 18; Pulse Ox 100% on R/A; mb9 ED Course: 18:40 Patient arrived in ED. rg4 18:41 Stephanie Varma FNP-C [facility]. kb 18:41 Rickie Arreola MD is Attending Physician. kb 19:00 Triage completed. ko1 19:00 Arm band placed on right wrist. Patient placed in an exam room, Patient notified of ko1 wait time. 19:02 Patricia Hernandez, ANNA is Primary Nurse. mb9 19:06 Placed in gown. Bed in low position. Call light in reach. Side rails up X 1. Provided mb9 Education on: press call light if needing anything. Client placed on continuous cardiac and pulse oximetry monitoring. NIBP monitoring applied. 19:12 No provider procedures requiring assistance completed. mb9 20:25 Patient did not have IV access during this emergency room visit. mb9 Administered Medications: No medications were administered Medication: 19:06 VIS not applicable for this client. mb9 Outcome: 20:29 Discharge ordered by . kb 20:40 Discharged to home ambulatory, mb9 20:40 Condition: stable 20:40 Discharge instructions given to patient, Instructed on discharge instructions, follow up and referral plans. Demonstrated understanding of instructions, follow-up care, 20:40 Patient left the ED. mb9 Signatures: Stephanie Varma, SYSTEMS TRAINER-C SYSTEMS TRAINER-Clhoé Bates rg4 Christine Moscoso, RN RN koPatricia Shaikh, RN RN mb9
--- NOTE | 2024-02-01 20:30 | EDPHYS ---
Physician Documentation [facility] Name: Betsy Alberts Age: 48 yrs Sex: Female : 1975 Arrival Date: 02/01/2024 Time: 18:38 Bed 13 Private MD: ED Physician Rickie Arreola HPI: 01/31 20:48 This 48 yrs old Female presents to ER via Ambulatory with complaints of Urinary kb Problem, Back Pain. 20:48 Pt is a 48 year old female who presents for possible UTI. States her urine is more kb yellow and she had low back pain earlier today. Denies pain at this time, dysuria, urinary frequency, fever, n/v/d. . 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 - Infectious Disease History:: Denies. - Social history:: Smoking status: Patient denies any tobacco usage or history of. ROS: 20:47 Constitutional: As per HPI kb Exam: 20:47 Constitutional: This is a well developed, well nourished patient who is awake, alert, kb and in no acute distress. Head/Face: Normocephalic, atraumatic. ENT: Moist Mucous membranes Cardiovascular: Regular rate Respiratory: Respirations even and unlabored. No increased work of breathing. Talking in full sentences Abdomen/GI: Soft, non-tender. No distention Back: No spinal tenderness. No costovertebral tenderness. Full range of motion. Skin: Warm, dry with normal turgor. Normal color. MS/ Extremity: Pulses equal, no cyanosis. Neurovascular intact. Full, normal range of motion. Neuro: Awake and alert, GCS 15, oriented to person, place, time, and situation. Moves all extremities. Normal gait. Vital Signs: 18:59 BP 178 / 86; Pulse 72; Resp 18; Temp 97.8; Pulse Ox 100% ; ko1 19:49 BP 121 / 88; Pulse 70; Resp 18; Pulse Ox 100% on R/A; mb9 MDM: 18:42 Patient medically screened. kb 20:49 Differential diagnosis: uti, pyelonephritis, kidney stone. Data reviewed: vital signs, kb nurses notes. Test considered but Not performed: CT: ct stone considered but pt has no pain, no hematuria, urinalysis wnl.. Counseling: I had a detailed discussion with the patient and/or guardian regarding the historical points, exam findings, and any diagnostic results supporting the discharge/admit diagnosis, lab results, the need for outpatient follow up, a family practitioner, to return to the emergency department if symptoms worsen or persist or if there are any questions or concerns that arise at home. 01/31 19:02 Order name: Test, Urine; Complete Time: 19:32 kb 01/31 19:02 Order name: Urinalysis w/ reflexes; Complete Time: 19:32 kb Administered Medications: No medications were administered Disposition: 21:27 Co-signature as Attending Physician, Rickie Arreola MD I agree with the assessment and kevin plan of care. Disposition Summary: 02/01/24 20:29 Discharge Ordered Notes: Location: Home kb Condition: Stable kb Diagnosis - Low back pain kb Followup: kb - With: Emergency Department - When: As needed - Reason: Worsening of condition Followup: kb - With: Private Physician - When: 2 - 3 days - Reason: Recheck today's complaints, Continuance of care, Re-evaluation by your physician Discharge Instructions: - Discharge Summary Sheet kb - Acute Back Pain, Adult kb Forms: - Medication Reconciliation Form kb - Antibiotic Education kb - Prescription Opioid Use kb - Patient Portal Instructions kb - Leadership Thank You Letter kb Signatures: Dispatcher [employer] Stephanie Castle, INDUSTRIAL ECOLOGIST-C INDUSTRIAL ECOLOGIST-Rickie Fritz MD MD cha Oliver, Kathy, RN RN ko1
[2024-02-02 03:33] VITALS: TEMP 97.8; O2SAT 100
[2024-02-02 03:38] VITALS: BP 121/88
== END 2024-02-01 20:40 | disposition home or self-care (01) ==
LOC: ER 18:38
DX: M54.50 Low back pain, unspecified (principal)
CPT/HCPCS: 81001; 81025; 99283